=== PATIENT | male | born 1955 | race Caucasian/White ===

== ENCOUNTER 2017-05-08 03:33 | Inpatient (IN) ==
[2017-05-08] MEDS ORDERED: ORPHENADRINE 60 MG/2 ML INJECTION IM ONE (03:41)
[2017-05-08] MEDS ORDERED: HYDROMORPHONE 2 MG/ML INJECTION IM ONE (03:41)
[2017-05-08] MEDS ORDERED: KETOROLAC 60 MG/2 ML INJECTION IM ONE (03:41)
--- NOTE | 2017-05-08 03:43 | Emergency Department Report ---
Back Pain HPI - General Stated Complaint: FALL/BACK PAIN Time Seen by Provider: 05/08/17 03:39 Source: patient, EMS Mode of arrival: EMS Limitations: no limitations - History of Present Illness HPI Narrative: Patient has had 2 falls in the last 2 days, the first was on the May , where the patient tripped/stumbling and falling backwards and struck the lumbar region of his back against a cabinet handle in his kitchen. Patient had immediate pain, but was able to get up without difficulty, and although he was having pain continued his normal activities. Yesterday the patient had another fall where he slid down stairs, partially on his back and partially on his stomach, and in an effort to try to stop himself patient gripped and grappled with the stairs going down several stairs. No the patient awoke this morning with significant pain in the muscular region of his deltoid and left trapezius, as well as significant lumbar back pain. Patient has tried 3 Tylenol tablets at home without relief. - Related Data Home Medications Medication Instructions Recorded Confirmed Aspirin [[place] Aspirin] 81 mg PO DAILY 05/08/17 05/08/17 Losartan [Cozaar] 50 mg PO DAILY 05/08/17 05/08/17 Multi-Vitamin Plain [Theragran] 1 tab PO DAILY 05/08/17 05/08/17 Allergies Allergy/AdvReac Type Severity Reaction Status Date / Time Sulfa (Sulfonamide Allergy Verified 05/08/17 03:53 Antibiotics) Review of Systems All systems: reviewed and negative except as stated PFSH Patient Stated Medical History Cataracts Yes Hypertension Yes Asthma Yes Sleep Apnea Yes Gastroesophageal Reflux Yes Disease Other Musculoskeletal Yes: NECK FRACTURE, TORN MENISCUS Blood Transfusions Yes: POSSIBLE WITH NECK SURGERY Hypertension High cholesterol Prediabetes GERD Obesity History of C4-5 fractures with fusion, patient has chronic lower extremity weakness that he has had since that injury 40 years ago. Surgical History: Portable left meniscus. C4/5 fracture with fusion. 2 hernia repairs as a child. Tonsillectomy - Social History Smoking status: Never smoker Substance use type: does not use Alcohol intake frequency: a few times a month Physical Exam - Limitations Limitations: no limitations - General General appearance: alert - Normal Exams: Head:: Normocephalic without trauma Eyes:: Pupils are PERRLA w/ EOMI, No scleral icterus, irritation, or foreign bodies noted ENMT:: No facial trauma, nasal exudates, pharyngeal erythema, or exudates are noted Neck:: Full range of motion, without adenopathy, JVD, bruits or thyromegaly Chest/Respirations:: Clear all coronado, with good airflow, and symmetry bilaterally Cardiovascular:: Regular rate and rhythm, without murmur or gallop, Pulses 2+ all extremities, capillary refill, <2 seconds all extremities Abdomen:: Bowel sounds positive, soft, non-tender, non-distended, no hepatosplenomegaly, masses or bruits noted Lymphatic:: No lymphadenopathy, or lymphedema noted Integumentary:: No rashes, hives, or bruising noted, hair and nails, without abnormality Neurological:: Patient is alert, and oriented, cranial nerves, motor/sensory/ cerebellar, exams w/o gross deficits, to observation Psychiatric:: Patient exhibits, appropriate attention, emotion and affect - Extremities Exam Extremities exam: Present: normal inspection, full ROM, tenderness (mild to moderate left upper trapezius and posterior lateral deltoid tenderness, no bony tenderness, full range of motion and strength,) - Back Exam Back exam: Present: normal inspection, tenderness (moderate diffuse bilateral lumbar paraspinal tenderness, with moderate spasm to palpation), muscle spasm, paraspinal tenderness. 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 After medications and rest, patient was improving, however patient continues to have significant him's and tenderness in the scapular muscles, bilateral trapezius muscles, and bilateral deltoids. In assessing the patient for his needs to return home, it became apparent that the patient feels very unsafe at home, does not feel as though his is strong enough to help him get around the house, and the patient does have persistent generalized lower Brian[place] weakness which is chronic. Case is discussed with Dr. Zarate - we'll admit the patient for upper shoulder weakness and pain after a fall, pain control, and MRI later today Disposition Clinical Impression: Upper extremity weakness, Muscle spasm of right shoulder, Muscle spasm of left shoulder, Lumbar paraspinal muscle spasm Disposition: 02 To OBS [facility] Condition: Improved Prescriptions: No Action Losartan [Cozaar] 50 mg PO DAILY Aspirin [[place] Aspirin] 81 mg PO DAILY Multi-Vitamin Plain [Theragran] 1 tab PO DAILY - Seen By: physician
[2017-05-08] MEDS ORDERED: SALINE FLUSH 10ml SYRINGE IVF PRN (05:31)
[2017-05-08] MEDS ORDERED: NS 1,000 ML IV ONE (05:32)
[2017-05-08] MEDS ORDERED: HYDROMORPHONE 2 MG/ML INJECTION IVP ONE (05:32)
--- NOTE | 2017-05-08 06:00 | History & Physical Report ---
<Joey Zarate Angel - Last Filed: 05/08/17 06:33> History of Present Illness Date: 05/08/17 Chief complaint: Back and shoulder pain HPI: 61 year old morbidly obese male presents to the ER with complaints of pain. He states he had 2 falls in the last 2 days, the first was on the May, where the patient tripped/stumbling and falling backwards and struck the lumbar region of his back against a cabinet handle in his kitchen. Patient had immediate pain, but was able to get up without difficulty, and although he was having pain continued his normal activities. Yesterday the patient had another fall where he slid down stairs, partially on his back and partially on his stomach. He then awoke this morning with significant pain in the muscular region of his deltoid and left trapezius, as well as significant lumbar back pain. Patient has tried 3 Tylenol tablets at home without relief. In the ED, CT imaging per report reveals no acute bony abnormality. However, he has significant muscle spasming and pain. He was given toradol, norflex, and dilaudid with some improvement. However, he is apprehensive of returning home and does not think he can take care of himself. He had a C4/5 fracture 40 years ago, and has been able to function well at home up until this point he states. Thus, he is being placed under observation status for further pain control. Please note this patient encounter was performed via the use of telemedicine technology Review of Systems All systems: reviewed and no additional remarkable complaints except as stated PFSH Patient Stated Medical History Cataracts Yes Hypertension Yes Asthma Yes Sleep Apnea Yes Gastroesophageal Reflux Yes Disease Other Musculoskeletal Yes: NECK FRACTURE, TORN MENISCUS Blood Transfusions Yes: POSSIBLE WITH NECK SURGERY Surgical History: Portable left meniscus. C4/5 fracture with fusion. 2 hernia repairs as a child. Tonsillectomy - Social History Smoking status: Never smoker Medications Home Medications Medication Instructions Recorded Confirmed Type Aspirin [[place] Aspirin] 81 mg PO DAILY 05/08/17 05/08/17 History Losartan [Cozaar] 50 mg PO DAILY 05/08/17 05/08/17 History Multi-Vitamin Plain [Theragran] 1 tab PO DAILY 05/08/17 05/08/17 History Allergies Allergy/AdvReac Type Severity Reaction Status Date / Time Sulfa (Sulfonamide Allergy Verified 05/08/17 07:10 Antibiotics) Exam Vital Signs: Temperature 99.0 F 05/08/17 03:33 Pulse Rate 83 05/08/17 05:25 Respiratory Rate 18 05/08/17 05:25 Blood Pressure 149/70 H 05/08/17 05:25 Pulse Oximetry 95 05/08/17 05:25 Oxygen Delivery Method Room Air Height: 1.78 m Weight: 129.3 kg - Constitutional Present: no acute distress, morbidly obese - Routine HEENT Exam Head: Present: normocephalic, atraumatic ENT: Present: mucous membranes moist - Routine Respiratory Exam Present: CTA bilaterally. Absent: accessory muscle use, dyspnea, rhonchi - Routine Cardiovascular Exam Present: RRR, S1, S2, no murmur - Routine Abdominal Exam Present: soft, normoactive bowel sounds, non tender - Routine Back/Spine/Pelvis Exam Back/Spine: Present: paraspinal tenderness, muscle spasm - Routine Skin Exam Present: intact. Absent: rash - Routine Neurological Exam Present: alert, oriented X3 Results - Labs CBC & Chem 7: 05/08/17 05:56 05/08/17 05:56 Assessment and Plan (1) Muscle spasm of left shoulder Current visit: Yes Status: Acute (2) Muscle spasm of right shoulder Current visit: Yes Status: Acute (3) Upper extremity weakness Current visit: Yes Status: Acute (4) Lumbar paraspinal muscle spasm Current visit: Yes Status: Acute Assessment and Plan: Assessment 1. Intractable pain of the shoulder and lumbar paraspinal musculature after fall 2. Morbid obesity 3. HTN 4. SUSAN 5. Remote history of C4/5 spinal injury Plan Patient will be placed under observational status for pain control purposes. Further imaging (ie MRI of the spine) to be deferred to daytime rounding MD. Will continue home meds. Place PT/OT consult. Lab work ordered by ED physician is still pending. Will add CPK on to labs. DVT ppx: SCDs Hospital Course Summary Disclaimer: The visit summary below is not to be considered part of the above Progress Note. <Marisela Ellis - Last Filed: 05/08/17 15:06> History of Present Illness Date: 05/08/17 [facility] Patient Stated Medical History Paralysis Yes: when neck fracture Cataracts Yes Hypertension Yes Asthma Yes Sleep Apnea Yes Gastroesophageal Reflux Yes Disease Other Musculoskeletal Yes: NECK FRACTURE, TORN MENISCUS Blood Transfusions Yes: POSSIBLE WITH NECK SURGERY Exam Vital Signs: Temperature 97.7 F 05/08/17 07:53 Pulse Rate 80 05/08/17 07:53 Respiratory Rate 18 05/08/17 07:53 Blood Pressure 153/78 H 05/08/17 07:53 Pulse Oximetry 95 05/08/17 06:53 Oxygen Delivery Method Room Air Height: 1.78 m Weight: 129.3 kg Results - Labs CBC & Chem 7: 05/08/17 05:56 05/08/17 05:56 Microbiology Results: Microbiology 05/08/17 11:44 Urine, Voided (Cc/notcc) Urine Culture - Preliminary Culture Initiated - Results Pending 05/08/17 10:14 Peripheral/Iv Start Blood Culture - Preliminary Culture Initiated - Results Pending 05/08/17 10:17 Peripheral/Iv Start Blood Culture - Preliminary Culture Initiated - Results Pending Assessment and Plan (1) Rhabdomyolysis Current visit: Yes Status: Acute (2) Upper extremity weakness Current visit: Yes Status: Acute (3) Muscle spasm of right shoulder Current visit: Yes Status: Acute (4) Muscle spasm of left shoulder Current visit: Yes Status: Acute (5) Lumbar paraspinal muscle spasm Current visit: Yes Status: Acute Assessment and Plan: Dr. Zarate's note reviewed. Mr. Amato interviewed and examined. CC: Back pain and falls HPI: Mr. Amato is a 61-year-old male with history of the C4-5 fracture 40 years ago requiring C3-6 fusion. As a result he has chronic weakness in his legs and altered sensation in his left foot. He falls intermittently and reports that he is more prone to fall when he is fatigued and the leg weakness seems to worsen. On 05/06 the patient stumbled and tripped falling backward at which time he fell backward and struck the lumbar region of his back against a kitchen cabinet. There was immediate pain but he was able to get up. He continued to have pain with usual activities later in the day and yesterday morning. On 05/07 patient had a second fall and slid down this stairs partially on his back and partially on his stomach. He was unable to get up by himself and EMS had to assist to get him off the floor. He awoke at approximately 1:30 this morning and was unable to get out of bed to get to the bathroom. Through the day yesterday had increasing pain in the upper back with increasing weakness in the upper extremities and aggravation of pain with any attempt to use his arms. His left arm seems weaker than usual (left arm is generally weaker than the right but current weakness exceeds baseline) he continues to have lumbar back pain. He describes significant back spasm. Tylenol has been used in high doses at home without any relief. EMS again reported to the patient 's home to help get him out of bed and subsequently transport to the emergency room. Lumbar spine CT demonstrated no acute bony pathology and the patient was hospitalized for pain management with multiple abnormal labs subsequently identified including a CPK of 41,512. Patient is admitted now for management of rhabdomyolysis, multiple falls, and acute on chronic back pain/muscle weakness. PH/SH/FH: agree with that recorded above with notation the patient uses CPAP at night and had bilateral cataract extractions 2 years ago. He additionally has had a deviated septum repair at age 17. The patient has no history of tobacco or illicit drug use and has occasional alcohol consumption. 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 Family history is positive for mother dying of CLL/colon cancer; father is 90 and has coronary artery disease and prior aortic valve replacement ROS: 10 point review as described previously with additions of chronic weakness of his legs, intermittent falls, chronic numbness in the left foot. Has chronic back pain and intermittent constipation. Remainder of review of systems is negative or as per history of present illness. EXAM: General-morbidly obese male, mildly uncomfortable when seen but alert and cooperative, fluent speech HEENT-PERRL, EOMI without nystagmus, conjunctiva clear, sclera anicteric, conjugate gaze, facial structures symmetric, oropharynx clear, neck supple and without adenopathy Lungs-respirations nonlabored, decreased breath sounds throughout, good inspiratory effort Cardiac-regular rhythm, S1-S2 Abd-soft, nontender, without palpable mass or organomegaly, bowel sounds present Ext-without edema Skin-no obvious wounds or bruising, back not directly visualized Neuro-cranial nerves 3-12 intact, sensation grossly intact to light touch upper and lower extremities, left pruner slightly weaker than the right, left deltoid graded 3/5, right 4+/5, bilateral biceps 4+/5, iliopsoas 4+/5 bilaterally, bilateral plantarflexion 4+/5, right dorsiflexion 4+/5, left dorsiflexion 3/5. Biceps jerks present 1/ Psych-calm, cooperative DATA: CPK 41,512, AST 695, ALT 124, bilirubin 1.8. Elective lites unremarkable , creatinine 1.0, BUN 23. White count 15.3 with 67% neutrophils, 27% bands, procalcitonin 4.55 UA with increased specific gravity, +3 occult blood, 5-10 RBCs, positive nitrate Lumbar spine CT reviewed by myself demonstrating no evidence for acute injury to the lumbar spine although mild neural foraminal narrowing is present. A/P: Rhabdomyolysis Falls Back injury with muscle spasm/pain Leukocytosis History C4-5 fracture, C3-6 fusion Chronic lower extremity weakness Hypertension Obstructive sleep apnea Morbid obesity, BMI 40.9 Patient is converted to inpatient status due to severity of muscle injury with resultant rhabdomyolysis and risk of kidney injury. High-volume fluids have been initiated. PICC line is being placed due to difficulty obtaining blood work and placing line earlier today. Anticipate that fluids will be needed for several days before CPK drops sufficiently that kidneys are no longer risk. CPK will be followed serially and renal function monitored. Transaminases are elevated on admission consistent with rhabdo. Exam reveals both left upper extremity weakness which patient describes as chronic although worsened with increased spasm in the upper back and bilateral lower extremity weakness suggestive of foot drop which likely predisposes to falls. Patient will be evaluated for IRU when medically stable for discharge. Pain control will be augmented with scheduled [place] and Flexeril with continuation of IV Dilaudid. CT of the lumbar spine did not reveal acute pathology but further imaging of the upper back may be needed as majority of the pain is in the thoracic distribution. Clinically this seems to be muscular and symptoms will be reassessed tomorrow. There is no radicular pain and no sensory loss to raise red flags at this time and weakness is consistent with muscle spasm and pain. Leukocytosis is present without clinical evidence of infectious source; urinalysis is not highly suspicious. Blood cultures were obtained and chest x- ray is being obtained. Continue home CPAP and home medications for hypertension. Discussed with case management, nursing, and IRU staff. Hospital Course Summary Disclaimer: The visit summary below is not to be considered part of the above Progress Note.
[2017-05-08] MEDS ORDERED: ACETAMINOPHEN 650 MG SUPPOSITORY PR PRN (07:07)
[2017-05-08] MEDS ORDERED: ONDANSETRON 4 MG/2 ML INJECTION IVP PRN (07:07)
--- NOTE | 2017-05-08 07:56 | CT Scan Report ---
Indication: fall, lumbar spinal pain PROCEDURE: CT lumbar spine wo con: Encounter: Initial Comparison: None Technique: Axial noncontrast CT imaging of the lumbar spine was performed with coronal and sagittal two-dimensional reformats. Automated Exposure Control and Iterative Reconstruction dose reducing techniques were utilized. FINDINGS: The alignment of the lumbar spine is normal for the patient's age. No fractures or traumatic subluxation of the lumbar spine is evident. There are age appropriate degenerative changes within the intervertebral disks and facet joints in the lower lumbar region. A few areas of mild neural foraminal narrowing. The paraspinal soft tissues and spinal canal are otherwise unremarkable in appearance. IMPRESSION: No evidence for acute traumatic injury of the lumbar spine. There is a preliminary report by [employer] [facility]. .
[2017-05-08] MEDS: HYDROCODONE/APAP 7.5 MG/325 MG TABLET PO PRN ×2 (08:07→14:26)
[2017-05-08] MEDS: HYDROMORPHONE 2 MG/ML INJECTION IVP PRN ×7 (08:07→23:09)
[2017-05-08] MEDS: LOSARTAN 50 MG TABLET PO SCH (09:14)
[2017-05-08] MEDS: MULTI-VITAMIN PLAIN TABLET PO SCH (09:14)
[2017-05-08] MEDS: ASPIRIN *EC* 81 MG TABLET PO SCH (09:14)
[2017-05-08] MEDS: NS 1,000 ML IV SCH ×3 (11:25→20:52)
[2017-05-08] MEDS: HYDROCODONE/APAP 7.5 MG/325 MG TABLET PO SCH ×2 (14:57→20:19)
[2017-05-08] MEDS: CYCLOBENZAPRINE 10 MG TABLET PO SCH ×2 (15:01→20:20)
--- NOTE | 2017-05-08 17:05 | XRay Report ---
Indication: obstructive sleep apnea, leukocytosis PROCEDURE: XR chest 1V: Encounter: Initial Comparison: None Findings: The second image demonstrates a right PICC line in place with the tip projecting over the lower SVC. Linear probable atelectasis in the left lower lobe. Obscuration of the left hemidiaphragm could be due to overlapping soft tissues and an enlarged cardiac silhouette. Right lung appears clear. No pneumothorax. Mediastinal contours and pulmonary vascularity appear normal. Chronic appearing right seventh posterior rib deformity. Impression: 1. Obscured left lung base. Infiltrate cannot be entirely excluded in this location. PA and lateral views may be helpful for further evaluation. 2. Right PICC line appears appropriately positioned. .
[2017-05-08] MEDS ORDERED: ACETAMINOPHEN 325 MG TABLET PO PRN (19:58)
[2017-05-08] MEDS ORDERED: BISACODYL 10 MG SUPPOSITORY RECTALLY PRN (23:42)
[2017-05-09] MEDS: NS 1,000 ML IV SCH ×5 (01:14→14:04)
[2017-05-09] MEDS: HYDROCODONE/APAP 7.5 MG/325 MG TABLET PO SCH ×4 (02:41→21:10)
[2017-05-09] MEDS: HYDROMORPHONE 2 MG/ML INJECTION IVP PRN ×3 (02:59→22:54)
[2017-05-09] MEDS ORDERED: SENNA + DOCUSATE TABLET PO SCH (09:00)
[2017-05-09] MEDS: POLYETHYL GLYCOL 3350 17gm PACKET PO SCH ×2 (09:11→21:13)
[2017-05-09] MEDS: LOSARTAN 50 MG TABLET PO SCH (09:11)
[2017-05-09] MEDS: ASPIRIN *EC* 81 MG TABLET PO SCH (09:12)
[2017-05-09] MEDS: CYCLOBENZAPRINE 10 MG TABLET PO SCH ×3 (09:12→21:13)
[2017-05-09] MEDS: MULTI-VITAMIN PLAIN TABLET PO SCH (09:12)
--- NOTE | 2017-05-09 16:21 | Progress Note ---
<NikaNina D - Last Filed: 05/09/17 16:17> Subjective: Don is still very sore. He understands the labs we're monitoring and asked appropriate questions. He denies difficulty breathing. We discussed labs suggestive of infection - he states he had a "cold" 1 month ago, but no respiratory sx, urinary issues, or wounds/rashes since then. He feels a little bloated and is constipated but has been eating well. He's looking forward to go to IRU when he's medically ready. We also discussed the low chance of renal failure progression, and he would want to go forward with dialysis if necessary. Objective Vital signs: Temperature 98.5 F 05/09/17 15:00 Pulse Rate 81 05/09/17 15:00 Respiratory Rate 18 05/09/17 15:00 Blood Pressure 157/74 H 05/09/17 15:00 Pulse Oximetry 96 05/09/17 15:00 Oxygen Delivery Method Room Air Weight: 137.5 kg - Constitutional Present: no acute distress, well nourished, well developed, obese - Routine HEENT Exam ENT: Present: mucous membranes moist - Routine Respiratory Exam Present: CTA bilaterally - Routine Cardiovascular Exam Present: S1, S2 - Routine Abdominal Exam Present: normoactive bowel sounds, distended - Routine Extremities Exam Present: edema (trace b/l lower ext.) - Routine Skin Exam Present: intact, dry, warm, rash (back - papular) - Routine Neurological Exam Present: alert, oriented X3 - Routine Psychiatric Exam Present: normal affect, normal thought process Results - Labs CBC & Chem 7: 05/09/17 04:41 05/09/17 13:59 Assessment and Plan (1) Rhabdomyolysis Current visit: Yes Status: Acute (2) Upper extremity weakness Current visit: Yes Status: Acute (3) Muscle spasm of right shoulder Current visit: Yes Status: Acute (4) Muscle spasm of left shoulder Current visit: Yes Status: Acute (5) Lumbar paraspinal muscle spasm Current visit: Yes Status: Acute (6) Acute kidney injury Current visit: Yes Status: Acute Assessment and Plan: Rhabdomyolysis - CK starting to trend down (peaked at 79,644, now at 61,563) - continue IVF & monitor for overload DEONDRE -Cr increased to 2.3 -repeat BMP in am -continue Walsh and I&Os Hyponatremia -mild, 133 -continue IVF SIRS -leukocytosis with left shift, fever, elevated procalcitonin -no evidence of infection; BC neg at 1 day -urine cx shows prelim. growth but UA is not indicative of UTI -? trauma effects Falls -fairly chronic -chronic lower ext weakness, hx C4-C5 fx -IRU once medically stable Sepsis Assessment - Evaluation Sepsis screening result: No Definite Risk Hospital Course Summary Disclaimer: The visit summary below is not to be considered part of the above Progress Note. Hospital Course: 05/09/17 16:26 Rhabdomyolysis - CK starting to trend down (peaked at 79,644, now at 61,563) - continue IVF & monitor for overload DEONDRE -Cr increased to 2.3 -repeat BMP in am -continue Walsh and I&Os Hyponatremia -mild, 133 -continue IVF SIRS -leukocytosis with left shift, fever, elevated procalcitonin -no evidence of infection; BC neg at 1 day -urine cx shows prelim. growth but UA is not indicative of UTI -? trauma effects Falls -fairly chronic -chronic lower ext weakness, hx C4-C5 fx -IRU once medically stable <Marisela Ellis - Last Filed: 05/09/17 18:00> Objective Vital signs: Temperature 98.5 F 05/09/17 15:00 Pulse Rate 81 05/09/17 15:00 Respiratory Rate 18 05/09/17 15:00 Blood Pressure 157/74 H 05/09/17 15:00 Pulse Oximetry 96 05/09/17 15:00 Oxygen Delivery Method Room Air Results - Labs CBC & Chem 7: 05/09/17 04:41 05/09/17 13:59 Assessment and Plan (1) Rhabdomyolysis Current visit: Yes Status: Acute (2) Acute kidney injury Current visit: Yes Status: Acute (3) Upper extremity weakness Problem details: L>R Current visit: Yes Status: Acute (4) Muscle spasm of left shoulder Current visit: Yes Status: Acute (5) Lumbar paraspinal muscle spasm Current visit: Yes Status: Acute (6) Cervical myelopathy Problem details: C4-5 fracture; C3-6 fusion 40 years ago Current visit: Yes Status: Chronic Assessment and Plan: I have independently evaluated and examined this patient. I reviewed the chart, the patient's history, and the JOB ANALYST's documented findings as above. We discussed and formulated the assessment and plan as above with additions as below: Don reports significant fatigue but otherwise reports pain control is improved. Continues to have difficulty moving his left shoulder with decreased range of motion. Urine output is improved. Primary complaint is constipation at this time. Fever was present yesterday afternoon and early evening but has subsided and there's been no recurrence. NAD, alert, fluent speech Minimal active abduction at the left shoulder but passively I can abduct the left to approximately 60 and flex anteriorly a little over 100. Range of motion is impaired on the left relative to the right but patient indicates that this is chronically true. Sensation remains intact to touch bilaterally in the upper extremities and distal lower extremities. Respirations nonlabored, breath sounds clear bilaterally. Trace bilateral lower extremity edema. Creatinine has climbed progressively from 1.0 on admission to 2.3; urine has faint pink tint with 3+ occult blood on urine dipstick-micral was not done on today's UA-Will recheck tomorrow with micro. Urine output improving- approximately 1 L urine output thus far today. CPK slightly improved this afternoon. Continue high-volume fluids, urine to be alkalinized with sodium acetate containing fluids. Patient has been tentatively accepted for rehabilitation but I don't believe he is medically stable to transfer until we have clear improvement in renal function and CPK drops below about 20,000. IV fluids will need to continue until CPK as below 5000 and preferably lower. Bowel regimen initiated for constipation. Chest x-ray obtained late yesterday reviewed by myself demonstrating no acute cardiopulmonary disease. Patient remains at high risk for renal compromise. Discussed with nursing and Pharm.D. Hospital Course Summary Disclaimer: T
[2017-05-09] MEDS: D5 IV SCH ×2 (18:21→22:57)
[2017-05-09] MEDS: [UNRECOGNIZED DRUG - OTHER] IV SCH ×2 (18:21→22:57)
[2017-05-09] MEDS: SODIUM ACETATE IV SCH ×2 (18:21→22:57)
[2017-05-09] MEDS: SENNA + DOCUSATE TABLET PO SCH (21:12)
[2017-05-10] MEDS: HYDROCODONE/APAP 7.5 MG/325 MG TABLET PO PRN ×2 (00:12→23:55)
[2017-05-10] MEDS: HYDROCODONE/APAP 7.5 MG/325 MG TABLET PO SCH ×4 (02:20→20:37)
[2017-05-10] MEDS: [UNRECOGNIZED DRUG - OTHER] IV SCH ×3 (03:12→12:46)
[2017-05-10] MEDS: D5 IV SCH ×3 (03:12→12:46)
[2017-05-10] MEDS: SODIUM ACETATE IV SCH ×3 (03:12→12:46)
[2017-05-10] MEDS: HYDROMORPHONE 2 MG/ML INJECTION IVP PRN ×2 (05:35→18:14)
[2017-05-10] MEDS: POLYETHYL GLYCOL 3350 17gm PACKET PO SCH (08:09)
[2017-05-10] MEDS: SENNA + DOCUSATE TABLET PO SCH ×2 (08:10→20:37)
[2017-05-10] MEDS: CYCLOBENZAPRINE 10 MG TABLET PO SCH ×3 (08:10→20:37)
[2017-05-10] MEDS: MULTI-VITAMIN PLAIN TABLET PO SCH (08:10)
[2017-05-10] MEDS: ASPIRIN *EC* 81 MG TABLET PO SCH (08:11)
[2017-05-10] MEDS: NS 1,000 ML IV SCH ×4 (12:54→19:54)
[2017-05-10] MEDS ORDERED: FUROSEMIDE 20 MG/2 ML INJECTION IVP ONE (15:42)
--- NOTE | 2017-05-10 17:37 | Progress Note ---
Subjective: Shane reports continued pain primarily in his shoulders and some pain in his back although that is less problematic than earlier days. He feels weak but his feet don't feel quite as closely as stated on admission. He had a bowel movement and is no longer experiencing any nausea. He denied dyspnea, chest pain, palpitations. Urine output is good and urine is no longer blood-tinged. Objective Vital signs: Temperature 97.4 F 05/10/17 15:03 Pulse Rate 81 05/10/17 15:03 Respiratory Rate 18 05/10/17 15:03 Blood Pressure 168/86 H 05/10/17 15:03 Pulse Oximetry 93 05/10/17 15:03 Oxygen Delivery Method Room Air EXAM General-NAD, alert, fluent speech HEENT-pupils equal/round, conjunctiva clear, sclera anicteric, oropharynx clear Lungs-respirations nonlabored, good airflow, breath sounds clear Cardiac-regular rhythm, S1-S2 Abd-soft, obese, nontender, bowel sounds present Ext-trace edema bilateral lower extremities Neuro-sensation intact bilateral upper/lower extremities but today patient notes a small area of tingling without loss of sensation along the medial left ankle extending onto the anterior medial left proximal/mid foot but not involving the toes or the Achilles tendon. Psych-calm, cooperative, pleasant - Weight: 141.521 kg Results - Labs CBC & Chem 7: 05/10/17 04:03 05/10/17 16:03 Labs: Creatinine this morning 2.8 with BUN 43, CPK this morning 44,041-this afternoon 38,011 AST 507, ALT 154, bili/alkaline phosphatase normal Assessment and Plan (1) Rhabdomyolysis Current visit: Yes Status: Acute (2) Acute kidney injury Current visit: Yes Status: Acute (3) Upper extremity weakness Problem details: L>R Current visit: Yes Status: Acute (4) Muscle spasm of left shoulder Current visit: Yes Status: Acute (5) Lumbar paraspinal muscle spasm Current visit: Yes Status: Acute (6) Cervical myelopathy Problem details: C4-5 fracture; C3-6 fusion 40 years ago Current visit: Yes Status: Chronic DVT Prophylaxis: SCD's Resuscitation Status: Full Code Assessment and Plan: Rhabdomyolysis Acute kidney injury, consistent with pigment nephropathy. Hyponatremia, resolved SIRS Ambulatory dysfunction Cervical myelopathy-old Muscle spasm/injury secondary to falls History C4-C5 fracture, remote Constipation Creatinine continues to climb although urine output is good and weight of climb is slowing. CPK slowly dropping-continue high-volume fluids although rate decreased to 125/ hr; acetate discontinued as an alkalinizing agent due to shortage. Low-volume Lasix added as patient is up about 12 kg from admission and fluid volume is significantly positive. May require Bumex to promote diuresis due to renal insufficiency. Repeat UA with micro. No further fever of significance (100.3 overnight), white count normal; and hyponatremia has corrected. Patient has been tentatively accepted for rehabilitation but I don't believe he is medically stable to transfer until we have clear improvement in renal function and CPK drops below about 20,000. IV fluids will need to continue until CPK as below 5000 and preferably lower. Continue bowel regimen for constipation. Patient remains at high risk for renal compromise. Discussed with nursing and Pharm.D. Sepsis Assessment - Evaluation Sepsis screening result: No Definite Risk Hospital Course Summary Disclaimer: The visit summary below is not to be considered part of the above Progress Note. Hospital Course: 05/08/17 Patient admitted after several falls and rhabdomyolysis with CPK of 41,512. High -volume fluids initiated. PICC line placed due to difficulty with phlebotomy and IV access. Transaminases elevated consistent with rhabdo. Significant weakness bilateral upper and lower extremities-remote cervical fracture, probable myelopathy. Continue home medications for hypertension, and home CPAP for SUSAN. 05/09/17 16:26 Rhabdomyolysis - CK starting to trend down (peaked at 79,644, now at 61,563) - continue IVF & monitor for overload DEONDRE -Cr increased to 2.3 -repeat BMP in am -continue Walsh and I&Os Hyponatremia -mild, 133 -continue IVF SIRS -leukocytosis with left shift, fever, elevated procalcitonin -no evidence of infection; BC neg at 1 day -urine cx shows prelim. growth but UA is not indicative of UTI -? trauma effects Falls -fairly chronic -chronic lower ext weakness, hx C4-C5 fx -IRU once medically stable 05/10/17 17:47 Creatinine continues to climb although urine output is good and weight of climb is slowing. CPK slowly dropping-continue high-volume fluids although rate decreased to 125/ hr; acetate discontinued as an alkalinizing agent due to shortage. Low-volume Lasix added as patient is up about 12 kg from admission and fluid volume is significantly positive. May require Bumex to promote diuresis due to renal insufficiency. No further fever of significance (100.3 overnight), white count normal; and hyponatremia has corrected. 05/10/17 17:52
[2017-05-10] MEDS ORDERED: POLYETHYL GLYCOL 3350 17gm PACKET PO PRN (17:44)
[2017-05-11] MEDS: HYDROCODONE/APAP 7.5 MG/325 MG TABLET PO SCH ×2 (03:01→09:09)
[2017-05-11] MEDS: NS 1,000 ML IV SCH ×5 (03:01→20:55)
--- NOTE | 2017-05-11 08:16 | Pharmacy Consult-Antibiotics ---
Pharmacy Consult-Vancomycin - Laboratory Information WBC 8.4 T/MM3 (4.5-11.0) 05/10/17 04:03 BUN 43.0 MG/DL (9-20) H 05/11/17 04:22 Creatinine 3.1 MG/DL (0.8-1.5) H 05/11/17 04:22 Procalcitonin 3.86 NG/ML H* 05/10/17 04:03 61yo M admitted with Rhabdomyolysis, Acute Kidney Injury. Also has GM + UTI. Sensitivities not yet available. Received Vancomycin 1500mg last night (05/10 @ 1930) Calculated CrCl = 31 ml/min Will continue to watch kidney fx closely. Will continue VANCOMYCIN @ 1250mg IV once daily. This gives calculated Peak/ trough of 36/15 mcg/ml respectively. Trough ordered for tomorrow am (05/12) prior to dose. Thank you
[2017-05-11] MEDS: POLYETHYL GLYCOL 3350 17gm PACKET PO SCH (09:11)
[2017-05-11] MEDS: ASPIRIN *EC* 81 MG TABLET PO SCH (09:11)
[2017-05-11] MEDS: CYCLOBENZAPRINE 10 MG TABLET PO SCH ×3 (09:11→21:53)
[2017-05-11] MEDS: MULTI-VITAMIN PLAIN TABLET PO SCH (09:12)
[2017-05-11] MEDS: SENNA + DOCUSATE TABLET PO SCH ×2 (09:12→21:53)
--- NOTE | 2017-05-11 13:39 | Progress Note ---
<Vijaya Garcia - Last Filed: 05/11/17 13:36> Subjective: Shane is seen today in follow up. He is feeling a little better. Still sore, LBP. Reports that he continues to have fairly significant arm weakness, reports difficulty lifting his arms. Chart is reviewed at length; Pt. did reports frequent falls a few days prior to admission for difficulty standing. Prior hx of cervical spine stenosis with surgery. Objective Vital signs: Temperature 98.7 F 05/11/17 08:00 Pulse Rate 79 05/11/17 08:00 Respiratory Rate 18 05/11/17 08:00 Blood Pressure 160/86 H 05/11/17 08:00 Pulse Oximetry 94 05/11/17 08:00 Oxygen Delivery Method Room Air Weight: 141.521 kg - Constitutional Present: no acute distress, well nourished, well developed, obese, cooperative - Routine HEENT Exam Eye: Present: EOMI, PERRL ENT: Present: mucous membranes moist - Routine Respiratory Exam Present: decreased breath sounds. Absent: dyspnea, rales, respiratory distress , rhonchi, wheezes - Routine Cardiovascular Exam Present: RRR, S1, S2 - Routine Abdominal Exam Present: soft, normoactive bowel sounds, non distended, non tender - Routine Extremities Exam Present: edema, tenderness - Routine Back/Spine/Pelvis Exam Back/Spine: Present: muscle spasm Pelvis: Present: buttock tenderness - Routine Musculoskeletal Exam Musculoskeletal: Present: no clubbing or cyanosis. Absent: normal strength, no tenderness - Routine Skin Exam Present: intact, dry, warm, normal turgor, rash (Back, chronic per pt. ) - Routine Neurological Exam Present: alert, oriented X3, motor deficit, moving all extremities - Routine Psychiatric Exam Present: normal affect, normal thought process, good insight, good judgment Results - Labs CBC & Chem 7: 05/10/17 04:03 05/11/17 04:22 Assessment and Plan (1) Upper extremity weakness Problem details: L>R Current visit: Yes Status: Acute (2) Muscle spasm of left shoulder Current visit: Yes Status: Acute (3) Lumbar paraspinal muscle spasm Current visit: Yes Status: Acute (4) Rhabdomyolysis Current visit: Yes Status: Acute (5) Acute kidney injury Current visit: Yes Status: Acute (6) Cervical myelopathy Problem details: C4-5 fracture; C3-6 fusion 40 years ago Current visit: Yes Status: Chronic DVT Prophylaxis: SCD's Resuscitation Status: Full Code Assessment and Plan: 05/11/17- *Recurrent falls due to gait instability; Generalized muscle pain and weakness. Known remote hx of C-Spine stenosis s/p surgery. Will order CT of C-spine in am due to weakness and falls onset prior to rhabdo. *Rhabdo with Acute Renal Failure-He is slowly improving. SCr continues to climb, but the rate of climb is slowing. CPK is trending down. Will hold off on transfer to rehab until CPK is less than 20k. Continue IVF, Bumex to flush system. *Generalized weakness, muscle pain- Transfer to rehab when medically stable. CT c-spine in am given c/o upper arm weakness and pain. This may be due to rhabdo, but would like to exclude hardware failure *Leukocytosis- UTI, Coag negative staph- Continue Vanco with pharmacy assist with renal dosing. CT C-spine to look at hardware. Some leukocytosis is likely reactive due to acute illness. Follow daily labs. *HTN- BP is trending up. Holding Cozaar due to DEONDRE. Start low dose Norvasc. Avoid excessive lowering so that we don't impede renal perfusion. Fingers are quite swollen. I have encouraged pt to remove jewelry and lock up due to risk of circulatory compromise. D/W POC with Dr. Ellis. - Time spent with patient 25 - 35 minutes Coordination of Care: >50% of visit spent providing counseling/coordination of care Sepsis Assessment - Evaluation Sepsis screening result: No Definite Risk Hospital Course Summary Disclaimer: The visit summary below is not to be considered part of the above Progress Note. Hospital Course: 05/08/17 Patient admitted after several falls and rhabdomyolysis with CPK of 41,512. High -volume fluids initiated. PICC line placed due to difficulty with phlebotomy and IV access. Transaminases elevated consistent with rhabdo. Significant weakness bilateral upper and lower extremities-remote cervical fracture, probable myelopathy. Continue home medications for hypertension, and home CPAP for SUSAN. 05/09/17 16:26 Rhabdomyolysis - CK starting to trend down (peaked at 79,644, now at 61,563) - continue IVF & monitor for overload DEONDRE -Cr increased to 2.3 -repeat BMP in am -continue Walsh and I&Os Hyponatremia -mild, 133 -continue IVF SIRS -leukocytosis with left shift, fever, elevated procalcitonin -no evidence of infection; BC neg at 1 day -urine cx shows prelim. growth but UA is not indicative of UTI -? trauma effects Falls -fairly chronic -chronic lower ext weakness, hx C4-C5 fx -IRU once medically stable 05/10/17 17:47 Creatinine continues to climb although urine output is good and weight of climb is slowing. CPK slowly dropping-continue high-volume fluids although rate decreased to 125/ hr; acetate discontinued as an alkalinizing agent due to shortage. Low-volume Lasix added as patient is up about 12 kg from admission and fluid volume is significantly positive. May require Bumex to promote diuresis due to renal insufficiency. No further fever of significance (100.3 overnight), white count normal; and hyponatremia has corrected. 05/10/17 17:52 05/11/17 13:53 *Recurrent falls due to gait instability; Generalized muscle pain and weakness. Known remote hx of C-Spine stenosis s/p surgery. Will order CT of C-spine in am due to weakness and falls onset prior to rhabdo. *Rhabdo with Acute Renal Failure-He is slowly improving. SCr continues to climb, but the rate of climb is slowing. CPK is trending down. Will hold off on transfer to rehab until CPK is less than 20k. Continue IVF, Bumex to flush system. *Generalized weakness, muscle pain- Transfer to rehab when medically stable. CT c-spine in am given c/o upper arm weakness and pain. This may be due to rhabdo, but would like to exclude hardware failure *Leukocytosis- UTI, Coag negative staph- Continue Vanco with pharmacy assist with renal dosing. CT C-spine to look at hardware. Some leukocytosis is likely reactive due to acute illness. Follow daily labs. *HTN- BP is trending up. Holding Cozaar due to DEONDRE. Start low dose Norvasc. Avoid excessive lowering so that we don't impede renal perfusion. Fingers are quite swollen. I have encouraged pt to remove jewelry and lock up due to risk of circulatory compromise. D/W POC with Dr. Ellis. <Marisela Ellis - Last Filed: 05/11/17 20:03> Objective Vital signs: Temperature 99.0 F 05/11/17 15:26 Pulse Rate 91 05/11/17 19:32 Respiratory Rate 16 05/11/17 19:32 Blood Pressure 171/84 H 05/11/17 19:32 Pulse Oximetry 97 05/11/17 15:26 Oxygen Delivery Method Room Air Results - Labs CBC & Chem 7: 05/10/17 04:03 05/11/17 14:45 Assessment and Plan (1) Rhabdomyolysis Current visit: Yes Status: Acute (2) Acute kidney injury Current visit: Yes Status: Acute (3) Upper extremity weakness Problem details: L>R Current visit: Yes Status: Acute (4) Muscle spasm of left shoulder Current visit: Yes Status: Acute (5) Lumbar paraspinal muscle spasm Current visit: Yes Status: Acute (6) Cervical myelopathy Problem details: C4-5 fracture; C3-6 fusion 40 years ago Current visit: Yes Status: Chronic Assessment and Plan: I have independently evaluated and examined this patient. I reviewed the chart, the patient's history, and the NETWORK SYSTEMS ADMINISTRATOR's documented findings as above. We discussed and formulated the assessment and plan as above with additions as below: Patient reports persistent discomfort in his shoulders and back but the pain is improving progressively. He denied dyspnea and has been ambulating in the room without lightheadedness. He's had no fever. Respirations are nonlabored with diminished breath sounds throughout but lungs are clear. No focal muscle tenderness on palpation of large muscle groups in the legs and across the back and upper arms. CPK continues to decline-down to 19,886 this afternoon; creatinine appears to have peaked at 3.1. Urine output improved with addition of Bumex. Rhabdomyolysis Acute kidney injury, consistent with pigment nephropathy. Hyponatremia, resolved SIRS Hypertension Ambulatory dysfunction Cervical myelopathy-old Muscle spasm/injury secondary to falls History C4-C5 fracture, remote Constipation Pyuria, staph epi Continue diuresis-significant volume overload by exam/weight. IV Bumex every 8 hours, will have to be cautious to avoid overdiuresis. Agree with addition of amlodipine for blood pressure. Will continue to require fluid replacement until CPK less than 5000. Provided creatinine stable or down slightly in the morning patient can transfer to IRU tomorrow. Staph epi in urine-doubt pathogenic. Has received 2 doses of vancomycin, discontinue after third dose tomorrow. Hospital Course Summary Disclaimer: The visit summary below is not to be considered part of the above Progress Note.
[2017-05-11] MEDS: HYDROCODONE/APAP 7.5 MG/325 MG TABLET PO PRN ×2 (14:55→21:57)
[2017-05-11] MEDS: AMLODIPINE 5 MG TABLET PO SCH (14:58)
[2017-05-12] MEDS ORDERED: SALINE FLUSH 10ml SYRINGE IV PRN (01:35)
[2017-05-12] MEDS: NS 1,000 ML IV SCH ×3 (01:48→09:49)
[2017-05-12 08:09] VITALS: BP 162/68; PULSE 93; RESP 19; TEMP 96.9; O2SAT 94
--- NOTE | 2017-05-12 08:11 | CT Scan Report ---
EXAM: CT cervical spine wo con LOCATION OF DICTATION: [facility] HISTORY: Neck pain, falls, arm weakness. COMPARISON: No prior studies available for comparison. Technique: Axial CT images through the cervical spine were performed without contrast. Coronal and sagittal reformatted images were also obtained. Automated Exposure Control and Iterative Reconstruction dose reducing techniques were utilized. FINDINGS: There is bony spinal fusion involving the posterior elements and facets extending from C2 to through the C6 level. Cerclage wires are demonstrated about the bilateral lamina at the C4 and C5 levels. There is reversal of normal cervical lordosis. There is no subluxation. There is no evidence for acute fracture. The prevertebral and paraspinal soft tissues are within normal limits. Moderate spondylosis throughout the cervical and upper thoracic spine with endplate spurring, disc space narrowing, and facet arthropathy. The lung apices are clear. IMPRESSION: 1. No evidence for acute fracture or subluxation. 2. Reversal of normal cervical lordosis with bony fusion and posterior fixation/cerclage wires as described above. 3. Moderate spondylosis throughout the cervical and upper thoracic spine. .
[2017-05-12] MEDS: AMLODIPINE 5 MG TABLET PO SCH (08:52)
[2017-05-12] MEDS: SENNA + DOCUSATE TABLET PO SCH (08:53)
[2017-05-12] MEDS: ASPIRIN *EC* 81 MG TABLET PO SCH (08:53)
[2017-05-12] MEDS: CYCLOBENZAPRINE 10 MG TABLET PO SCH (08:53)
[2017-05-12] MEDS: MULTI-VITAMIN PLAIN TABLET PO SCH (08:53)
[2017-05-12] MEDS: POLYETHYL GLYCOL 3350 17gm PACKET PO SCH (08:53)
--- NOTE | 2017-05-12 11:07 | Discharge Instructions ---
Discharge Plan - Med Rec/Dispo [facility] Instructions: Back Pain (GEN) Prescriptions: New Acetaminophen [Tylenol] 325 - 650 mg PO Q4H PRN tablet PRN Reason: Fever /Headache /Pain Amlodipine [Norvasc] 5 mg PO DAILY tablet Cyclobenzaprine [Flexeril] 10 mg PO TID tablet Hydrocodone/APAP 7.5/325 [[place] 7.5/325] 1 tab PO Q4H PRN tablet PRN Reason: Pain PEG 3350 17gm PACKET [Miralax] 17 gm PO DAILY packet Bumetanide Tab [Bumex] 1 mg PO DAILY #20 tablet Bisacodyl Supp [Dulcolax] 10 mg RECTALLY DAILY PRN supp PRN Reason: Constipation Milk of Magnesia [Mom] 30 ml PO DAILY PRN udc PRN Reason: Constipation Senna + Docusate [Senna Plus Tablet] 2 tab PO BID tablet Continue Aspirin [Blanche Aspirin] 81 mg PO DAILY Multi-Vitamin Plain [Theragran] 1 tab PO DAILY Discontinued Losartan [Cozaar] 50 mg PO DAILY - Disposition 62 To [facility]
--- NOTE | 2017-05-12 11:13 | Pharmacy Consult-Antibiotics ---
Pharmacy Consult-Vancomycin - Laboratory Information WBC 8.9 T/MM3 (4.5-11.0) 05/12/17 04:06 BUN 43.0 MG/DL (9-20) H 05/12/17 04:06 Creatinine 2.9 MG/DL (0.8-1.5) H D 05/12/17 04:06 Procalcitonin 3.86 NG/ML H* 05/10/17 04:03 Vancomycin Trough 11.64 UG/ML (15-20) L 05/12/17 08:18 - Consult Information Vancomyin trough back at 11.6 mcg/ml. Blood cultures show no growth x4 days. No culture and sensitivity results back yet on the coagulase negative starph that grew in urine (not staph aureus). Mr Amato's serum creatinine at 2.9 mg/dl today. Will keep vancomycin at 1250mg IV daily. Thank you.
--- NOTE | 2017-05-12 11:17 | Discharge Summary ---
Discharge Information Date of admission: 05/08/17 14:31 <Ted Elam - 05/12/17 12:44> 05/08/17 14:31 <Natalee Sykes V - 05/12/17 11:24> Attending Physician: Marisela Ellis MD <Ted Elam - 05/12/17 12:44> Marisela Ellis MD <Natalee Sykes V - 05/12/17 11:24> Primary care physician: SUNITA MEANS <Ted Elam - 05/12/17 12:44> SUNITA MEANS <Natalee Sykes V - 05/12/17 11:24> Consults: 05/10/17 Pharmacy Consult [CONS] Routine Pharmacy Consult: Vancomycin Comment: gram-positive UTI, white count 15 K, acute kidney <Ted Ealm - 05/12/17 12:44> 05/10/17 Pharmacy Consult [CONS] Routine Pharmacy Consult: Vancomycin Comment: gram-positive UTI, white count 15 K, acute kidney <Natalee Sykes V - 05/12/17 11:24> - Discharge Diagnosis (1) Upper extremity weakness Problem Details: L>R Status: Acute (2) Muscle spasm of left shoulder Status: Acute (3) Lumbar paraspinal muscle spasm Status: Acute (4) Rhabdomyolysis Status: Acute (5) Acute kidney injury Status: Acute (6) Cervical myelopathy Problem Details: C4-5 fracture; C3-6 fusion 40 years ago Status: Chronic <Ted Elam - 05/12/17 12:44> (1) Upper extremity weakness Problem Details: L>R Status: Acute (2) Muscle spasm of left shoulder Status: Acute (3) Lumbar paraspinal muscle spasm Status: Acute (4) Rhabdomyolysis Status: Acute (5) Acute kidney injury Status: Acute (6) Cervical myelopathy Problem Details: C4-5 fracture; C3-6 fusion 40 years ago Status: Chronic <Natalee Sykes V - 05/12/17 11:13> - Laboratory Labs: 05/12/17 04:06 05/12/17 04:06 <Ted Elam - 05/12/17 12:44> 05/12/17 04:06 05/12/17 04:06 <Natalee Sykes V - 05/12/17 11:24> - Microbiology Microbiology 05/08/17 10:14 Peripheral/Iv Start Blood Culture - Preliminary No Growth After 4 Days 05/08/17 10:17 Peripheral/Iv Start Blood Culture - Preliminary No Growth After 4 Days 05/08/17 11:44 Urine, Voided (Cc/notcc) Urine Culture - Preliminary Coag negative Staphylococcus <Natalee Sykes V - 05/12/17 11:24> - Radiology Radiology: 05/08/17-CT lumbar spine-No evidence for acute traumatic injury of the lumbar spine. 05/08/17-chest x-ray- 1. Obscured left lung base. Infiltrate cannot be entirely excluded in this location. PA and lateral views may be helpful for further evaluation. 2. Right PICC line appears appropriately positioned. 05/12/17-CT cervical spine- IMPRESSION: 1. No evidence for acute fracture or subluxation. 2. Reversal of normal cervical lordosis with bony fusion and posterior fixation/cerclage wires as described above. 3. Moderate spondylosis throughout the cervical and upper thoracic spine. <Natalee Sykes Cayetano - 05/12/17 11:24> - Pathology none <Natalee Sykes V 05/12/17 11:24> History of Present Illness HPI: 61 year old morbidly obese male presents to the ER with complaints of pain. He states he had 2 falls in the last 2 days, the first was on the [place], where the patient tripped/stumbling and falling backwards and struck the lumbar region of his back against a cabinet handle in his kitchen. Patient had immediate pain, but was able to get up without difficulty, and although he was having pain continued his normal activities. Yesterday the patient had another fall where he slid down stairs, partially on his back and partially on his stomach. He then awoke this morning with significant pain in the muscular region of his deltoid and left trapezius, as well as significant lumbar back pain. Patient has tried 3 Tylenol tablets at home without relief. In the ED, CT imaging per report reveals no acute bony abnormality. However, he has significant muscle spasming and pain. He was given toradol, norflex, and dilaudid with some improvement. However, he is apprehensive of returning home and does not think he can take care of himself. He had a C4/5 fracture 40 years ago, and has been able to function well at home up until this point he states. Thus, he is being placed under observation status for further pain control. Please note this patient encounter was performed via the use of telemedicine technology <Natalee Sykes V - 05/12/17 11:24> Hospital Course This is a general summary of the patient's hospital course. For more details refer to the complete medical record. <Ted Elam D - 05/12/17 12:44> This is a general summary of the patient's hospital course. For more details refer to the complete medical record. <OnelNatalee Cayetano - 05/12/17 11:24> Hospital course: 05/08/17 Patient admitted after several falls and rhabdomyolysis with CPK of 41,512. High -volume fluids initiated. PICC line placed due to difficulty with phlebotomy and IV access. Transaminases elevated consistent with rhabdo. Significant weakness bilateral upper and lower extremities-remote cervical fracture, probable myelopathy. Continue home medications for hypertension, and home CPAP for SUSAN. 05/09/17 16:26 Rhabdomyolysis - CK starting to trend down (peaked at 79,644, now at 61,563) - continue IVF & monitor for overload DEONDRE -Cr increased to 2.3 -repeat BMP in am -continue Walsh and I&Os Hyponatremia -mild, 133 -continue IVF SIRS -leukocytosis with left shift, fever, elevated procalcitonin -no evidence of infection; BC neg at 1 day -urine cx shows prelim. growth but UA is not indicative of UTI -? trauma effects Falls -fairly chronic -chronic lower ext weakness, hx C4-C5 fx -IRU once medically stable 05/10/17 17:47 Creatinine continues to climb although urine output is good and weight of climb is slowing. CPK slowly dropping-continue high-volume fluids although rate decreased to 125/ hr; acetate discontinued as an alkalinizing agent due to shortage. Low-volume Lasix added as patient is up about 12 kg from admission and fluid volume is significantly positive. May require Bumex to promote diuresis due to renal insufficiency. No further fever of significance (100.3 overnight), white count normal; and hyponatremia has corrected. 05/10/17 17:52 07/09/17 13:53 *Recurrent falls due to gait instability; Generalized muscle pain and weakness. Known remote hx of C-Spine stenosis s/p surgery. Will order CT of C-spine in am due to weakness and falls onset prior to rhabdo. *Rhabdo with Acute Renal Failure-He is slowly improving. SCr continues to climb, but the rate of climb is slowing. CPK is trending down. Will hold off on transfer to rehab until CPK is less than 20k. Continue IVF, Bumex to flush system. *Generalized weakness, muscle pain- Transfer to rehab when medically stable. CT c-spine in am given c/o upper arm weakness and pain. This may be due to rhabdo, but would like to exclude hardware failure *Leukocytosis- UTI, Coag negative staph- Continue Vanco with pharmacy assist with renal dosing. CT C-spine to look at hardware. Some leukocytosis is likely reactive due to acute illness. Follow daily labs. *HTN- BP is trending up. Holding Cozaar due to DEONDRE. Start low dose Norvasc. Avoid excessive lowering so that we don't impede renal perfusion. 05/12/17- Discharge Overall Don is feeling good today and he verbalizes that he is ready to continued rehabilitation. We will transfer to IRU this afternoon. Vancomycin will be discontinued. Will continue to medically follow patient and monitor blood pressure as his home Cozaar will remain stopped due to acute kidney injury. Continue to follow routine laboratory studies to monitor renal function. Creatine did decrease to 2.9 today. CK continues to trend down and is 13,067. He will continue to utilize BiPAP at night. Overall Don is making good gains. <Natalee Sykes V - 05/12/17 11:24> Discharge Plan - Med Rec/Dispo Referrals/Follow Up: <Ted Elam - 05/12/17 12:44> [place] Instructions: Back Pain (GEN) <Ted Elam - 05/12/17 12:44> Prescriptions: New Acetaminophen [Tylenol] 325 - 650 mg PO Q4H PRN tablet PRN Reason: Fever /Headache /Pain Amlodipine [Norvasc] 5 mg PO DAILY tablet Cyclobenzaprine [Flexeril] 10 mg PO TID tablet Hydrocodone/APAP 7.5/325 [[place] 7.5/325] 1 tab PO Q4H PRN tablet PRN Reason: Pain PEG 3350 17gm PACKET [Miralax] 17 gm PO DAILY packet Bumetanide Tab [Bumex] 1 mg PO DAILY #20 tablet Bisacodyl Supp [Dulcolax] 10 mg RECTALLY DAILY PRN supp PRN Reason: Constipation Milk of Magnesia [Mom] 30 ml PO DAILY PRN udc PRN Reason: Constipation Senna + Docusate [Senna Plus Tablet] 2 tab PO BID tablet Continue Aspirin [[place] Aspirin] 81 mg PO DAILY Multi-Vitamin Plain [Theragran] 1 tab PO DAILY Discontinued Losartan [Cozaar] 50 mg PO DAILY <Ted Elam - 05/12/17 12:44> Discharge to [facility]/IRU/[facility]: <Ted Elam - 05/12/17 12:44> <Natalee Sykes V - 05/12/17 11:24> - Disposition 61 To [facility] INPT Re[facility] <Ted Elam - 05/12/17 12:44> - Attestation Attestation Narrative: 05/12/17 12:41 Have independently interviewed and examined pt. Chart reviewed. Case discussed with CM and my GLOVE PRINTER. Care plan developed with my supervision; agree with above. Doing okay today. Worked with therapy. Notes appetite decreased; slight nausea but mainly not as hungry. Stools still very slow. Breathing well without SOA, cough or congestion. No chest pain. No f/c. Lungs: decreased, no distress CV: regular AB: soft nt/nd BS decreased MSE: awake alert appropriate Plan: Will d/c to IRU to maximize functional status. ARB stopped due to DEONDRE. Will need to continue to monitor renal function. Can stop Vancomycin. Encourage therapy. Pt medically stable for d/c to IRU. See orders for details. <Ted Elam - 05/12/17 12:43>
[2017-05-12] MEDS ORDERED: NEOMYCIN/POLYMYXIN/BACITRACIN OINT PACKET TP PRN (12:39)
== END 2017-05-12 13:45 | DRG 558 ==
LOC: ED 03:33 → MED 03:33 → SRG 03:33 → MED 06:40 → SRG 07:00 → UNDODISIN 05-12 13:45
PROVIDERS: ADMIT Hospitalist; ATTEND Internal Medicine

== ENCOUNTER 2017-05-12 14:35 | Inpatient (IN) ==
[2017-05-12] MEDS ORDERED: ACETAMINOPHEN 325 MG TABLET PO PRN ×2 (14:50→16:38)
[2017-05-12 14:52] VITALS: BMI 44.1
[2017-05-12] MEDS ORDERED: POLYETHYL GLYCOL 3350 17gm PACKET PO PRN (16:38)
[2017-05-12] MEDS ORDERED: BISACODYL 10 MG SUPPOSITORY RECTALLY PRN (16:38)
[2017-05-12] MEDS ORDERED: NEOMYCIN/POLYMYXIN/BACITRACIN OINT PACKET TP PRN (17:37)
[2017-05-12] MEDS: CYCLOBENZAPRINE 10 MG TABLET PO SCH (20:21)
[2017-05-12] MEDS: HYDROCODONE/APAP 7.5 MG/325 MG TABLET PO PRN (20:22)
[2017-05-12] MEDS: SENNA + DOCUSATE TABLET PO SCH (21:08)
[2017-05-13] MEDS: HYDROCODONE/APAP 7.5 MG/325 MG TABLET PO PRN ×3 (00:18→18:06)
[2017-05-13] MEDS ORDERED: FALL RISK - PHARMACY CONSULT XX PRN (03:39)
[2017-05-13] MEDS ORDERED: AMLODIPINE 5 MG TABLET PO SCH (09:00)
[2017-05-13] MEDS ORDERED: POLYETHYL GLYCOL 3350 17gm PACKET PO SCH (09:00)
[2017-05-13] MEDS ORDERED: LOSARTAN 50 MG TABLET PO SCH (09:00)
[2017-05-13] MEDS: BUMETANIDE 1 MG TABLET PO SCH (10:18)
[2017-05-13] MEDS: CYCLOBENZAPRINE 10 MG TABLET PO SCH ×3 (10:18→21:35)
[2017-05-13] MEDS: ASPIRIN *EC* 81 MG TABLET PO SCH (10:18)
[2017-05-13] MEDS: MULTI-VITAMIN PLAIN TABLET PO SCH (10:19)
[2017-05-13] MEDS: SENNA + DOCUSATE TABLET PO SCH (10:20)
--- NOTE | 2017-05-13 13:29 | Consult Note ---
<Natalee Sykes V - Last Filed: 05/13/17 13:18> Consult Information - Data of Consult Patient: known to practice within the last 3 years Consult date: 05/13/17 Requesting Physician: Marito Lee MD Primary Care Provider: SUNITA BROWN Family Provider: SUNITA BROWN - Consult Narrative Reason for consult: medical management of hypertension, asthma History of present illness: Shane is a pleasant 61-year-old gentleman who is known to the hospitalist services as he was recently admitted under the acute medical care. He was initially admitted for intractable back pain accompanied with rhabdomyolysis along with general weakness. He was found to have urinary in tract infection and was placed on vancomycin. He was hydrated and laboratory studies were trended down. Due to his ongoing weakness, accompanied with ongoing pain and recent falls. He was accepted to the IRU unit for ongoing rehabilitation and strengthening. Shane is seen this morning during breakfast for initial medical consultation. He is alert and oriented. States that he is doing well other than feeling somewhat stiff from sleeping overnight. Did review this morning's laboratory studies white count is normal at 10.2, hemoglobin 12.5, hematocrit 37.4, platelet count 227. Chemistry is 142, potassium 3.5, BUN 45, creatinine 2.5. PFSH Patient Stated Medical History Paralysis Yes: when neck fracture Cataracts Yes Hypertension Yes Asthma Yes Sleep Apnea Yes Constipation Yes Gastroesophageal Reflux Yes Disease Hx Incontinence No Hx Renal Disease No Hx Urinary Tract Infection Yes Other Musculoskeletal Yes: NECK FRACTURE, TORN MENISCUS R Blood Transfusions Yes: POSSIBLE WITH NECK SURGERY Recent acute kidney injury following Rhabdomylosis Surgical History: Portable left meniscus. C4/5 fracture with fusion. 2 hernia repairs as a child. Tonsillectomy Family History: Father with coronary artery disease Mother from CLL and colon cancer - Social History Smoking status: Current every day smoker Alcohol intake: current Alcohol intake frequency: holidays/special occasions only Household members: spouse Current occupational status: employed (CPA) Current residence: Apartment/Private Home Social history: Dr Sunita Brown Review of Systems All systems: reviewed and no additional remarkable complaints except as stated Review of systems: All ROS was denied by paitnet other that "stiffness and fatigue" Medications Home Medications Medication Instructions Recorded Confirmed Type Aspirin [[place] Aspirin] 81 mg PO DAILY 05/08/17 05/08/17 History Multi-Vitamin Plain [Theragran] 1 tab PO DAILY 05/08/17 05/08/17 History Allergies Allergy/AdvReac Type Severity Reaction Status Date / Time Sulfa (Sulfonamide Allergy Verified 05/08/17 07:10 Antibiotics) Exam Vital Signs: Temperature 98.3 F 05/13/17 10:11 Pulse Rate 110 H 05/13/17 10:11 Respiratory Rate 18 05/13/17 10:11 Blood Pressure 157/85 H 05/13/17 10:11 Pulse Oximetry 95 05/13/17 10:11 Oxygen Delivery Method Room Air Height: 1.78 m Weight: 139.6 kg Body Mass Index: 44.1 - Constitutional Present: no acute distress - Routine HEENT Exam Head: Present: normocephalic, atraumatic Eye: Present: EOMI, PERRL ENT: Present: mucous membranes moist - Routine Neck Exam Present: supple, full ROM - Routine Respiratory Exam Present: CTA bilaterally - Routine Cardiovascular Exam Present: RRR, S1, S2 - Routine Abdominal Exam Present: soft, normoactive bowel sounds - Routine Extremities Exam Present: full ROM - Routine Back/Spine/Pelvis Exam Back/Spine: Present: full ROM - Routine Skin Exam Present: intact, dry, warm - Routine Neurological Exam Present: alert, oriented X3, CN II-XII intact Results - Labs CBC & Chem 7: 05/13/17 04:46 05/13/17 04:46 Assessment and Plan (1) Acute kidney injury Current visit: No Status: Acute (2) Lumbar paraspinal muscle spasm Current visit: No Status: Acute (3) Muscle spasm of left shoulder Current visit: No Status: Acute (4) Muscle spasm of right shoulder Current visit: No Status: Acute (5) Rhabdomyolysis Current visit: No Status: Acute (6) Upper extremity weakness Problem details: L>R Current visit: No Status: Acute (7) Cervical myelopathy Problem details: C4-5 fracture; C3-6 fusion 40 years ago Current visit: No Status: Chronic (8) Hypokalemia Current visit: Yes Status: Acute Assessment and Plan: Agree with admission to inpatient rehabilitation unit for ongoing strenghtening and improved function given weakness with recent falls. Renal function does continue to improve, however, is not back at baseline. Salon Stylist today is 2.5 (Baseline appears to be 1.0-1.5). Will continue to hold Cozaar at this time as this can be nephrotoxic Blood pressures are elevated. Will increase Norvasc to 10 mg daily for better control Have asked nursing staff to bladder retraining with Vaca catheter and will plan to discontinue Vaca tomorrow morning. Potassium today is slightly decreased to 3.5. will give a one time order of 40 MEQ today. Will recheck BMP and CK (was 13,067 on 05/12) tomorrow morning. Encourage continued work with PT and OT for strengthening under the care of Dr Lee At time of discharge, patient's medical care will return to his primary care provider, Dr. Brown in [facility] Course Summary Disclaimer: The visit summary below is not to be considered part of the above Progress Note. Hospital Course: 05/13/17 Agree with admission to inpatient rehabilitation unit for ongoing strenghtening and improved function given weakness with recent falls. Renal function does continue to improve, however, is not back at baseline. Salon Stylist today is 2.5 (Baseline appears to be 1.0-1.5). Will continue to hold Cozaar at this time as this can be nephrotoxic Blood pressures are elevated. Will increase Norvasc to 10 mg daily for better control Have asked nursing staff to bladder retraining with Vaca catheter and will plan to discontinue Vaca tomorrow morning. Potassium today is slightly decreased to 3.5. will give a one time order of 40 MEQ today. Will recheck BMP and CK (was 13,067 on 05/12) tomorrow morning. Encourage continued work with PT and OT for strengthening under the care of Dr Lee At time of discharge, patient's medical care will return to his primary care provider, Dr. Brown in [place] Sepsis Assessment - Evaluation Sepsis screening result: No Definite Risk <Ted Elam - Last Filed: 05/13/17 16:16> Consult Information - Data of Consult Requesting Physician: Marito Lee MD Primary Care Provider: SUNITA BROWN Family Provider: SUNITA BROWN [facility] Patient Stated Medical History Paralysis Yes: when neck fracture Cataracts Yes Hypertension Yes Asthma Yes Sleep Apnea Yes Constipation Yes Gastroesophageal Reflux Yes Disease Hx Incontinence No Hx Renal Disease No Hx Urinary Tract Infection Yes Other Musculoskeletal Yes: NECK FRACTURE, TORN MENISCUS R Blood Transfusions Yes: POSSIBLE WITH NECK SURGERY Exam Vital Signs: Temperature 98.3 F 05/13/17 10:11 Pulse Rate 110 H 05/13/17 10:11 Respiratory Rate 18 05/13/17 10:11 Blood Pressure 157/85 H 05/13/17 10:11 Pulse Oximetry 95 05/13/17 10:11 Oxygen Delivery Method Room Air Height: 1.78 m Weight: 139.6 kg Results - Labs CBC & Chem 7: 05/13/17 04:46 05/13/17 04:46 Assessment and Plan (1) Acute kidney injury Current visit: No Status: Acute (2) Rhabdomyolysis Current visit: No Status: Acute (3) Hypokalemia Current visit: Yes Status: Acute (4) Upper extremity weakness Problem details: L>R Current visit: No Status: Acute (5) Muscle spasm of right shoulder Current visit: No Status: Acute (6) Muscle spasm of left shoulder Current visit: No Status: Acute (7) Lumbar paraspinal muscle spasm Current visit: No Status: Acute (8) Cervical myelopathy Problem details: C4-5 fracture; C3-6 fusion 40 years ago Current visit: No Status: Chronic (9) SUSAN on CPAP Current visit: Yes Status: Acute (10) Morbid obesity Current visit: Yes Status: Acute Resuscitation Status: Full Code Assessment and Plan: Have independently interviewed and examined pt. Chart reviewed. Case discussed with my SAMPLE FINISHER. Above care plan developed with my supervision; agree with above. Doing okay today-had big day of therapy. Tolerated therapy-tired and sore. Not having increased pain to his shoulder. Breathing doing well. No chest pressure or pain. Eating well. No nausea or ab pain. Bowels moving well (too well per pt report). Tolerating vaca. Lungs; decreased, no crackles or wheezes. CV: regular AB: soft Obses nt/nd MSE: awake alert appropriate Plan: Agree with admission of patient to IRU to maximize his functional status. Hold Cozaar-monitor renal function. Bladder retaining-hope to remove vaca in near future. Encourage therapy. Continue home CPAP-pt has found this to be very beneficial. Will stop daily senna and miralax - continue prn medication for bowel function. Will need to monitor BMP and CPK during hospitalization. Medically stable for IRU floor activities. Hospital Course Summary Disclaimer: The visit summary below is not to be considered part of the above Progress Note.
[2017-05-14] MEDS: HYDROCODONE/APAP 7.5 MG/325 MG TABLET PO PRN ×3 (01:35→21:01)
--- NOTE | 2017-05-14 07:29 | IRU History & Physical Report ---
HPI IRU Date: Chief complaint: debility post rhabdomyolysis episode. HPI: 61 yo male with a history of rhabdomyolysis due to immobility with severe chronic back pain. He was admitted with elevated CK and then developed UTI. He has been unable to return home due to weakness and debility from hospitalization. He is willing to work with PT and OT 3 hours daily and will be admitted to IRU. Review of Systems All systems: reviewed and no additional remarkable complaints except as stated PFSH Patient Stated Medical History Paralysis Yes: when neck fracture Cataracts Yes Hypertension Yes Asthma Yes Sleep Apnea Yes Constipation Yes Gastroesophageal Reflux Yes Disease Hx Incontinence No Hx Renal Disease No Hx Urinary Tract Infection Yes Other Musculoskeletal Yes: NECK FRACTURE, TORN MENISCUS R Blood Transfusions Yes: POSSIBLE WITH NECK SURGERY Surgical History: Portable left meniscus. C4/5 fracture with fusion. 2 hernia repairs as a child. Tonsillectomy Family History: neg - Social History Smoking status: Current every day smoker Substance use type: does not use Current residence: Apartment/Private Home Medications Home Medications Medication Instructions Recorded Confirmed Type Aspirin [[place] Aspirin] 81 mg PO DAILY 05/08/17 05/08/17 History Multi-Vitamin Plain [Theragran] 1 tab PO DAILY 05/08/17 05/08/17 History Allergies Allergy/AdvReac Type Severity Reaction Status Date / Time Sulfa (Sulfonamide Allergy Verified 05/08/17 07:10 Antibiotics) Exam Vital Signs: Temperature 98.8 F 05/14/17 00:00 Pulse Rate 69 05/14/17 00:00 Respiratory Rate 18 05/14/17 00:00 Blood Pressure 106/67 05/14/17 00:00 Pulse Oximetry 95 05/14/17 00:00 Oxygen Delivery Method Room Air Telemetry Rhythm: Sinus Rhythm Height: 1.78 m Weight: 139.6 kg Body Mass Index: 44.1 - Constitutional Present: no acute distress - Routine HEENT Exam Eye: Present: EOMI ENT: Present: mucous membranes moist, dentition normal - Routine Respiratory Exam Present: CTA bilaterally. Absent: wheezes - Routine Cardiovascular Exam Present: RRR. Absent: murmur Sepsis Assessment - Evaluation Sepsis screening result: No Definite Risk IRU A/P (1) Myopathy Current visit: Yes Status: Acute PT and OT to develop plan of care to increase strength and stability. (2) Hypokalemia Current visit: Yes Status: Acute medical to manage (3) Rhabdomyolysis Current visit: No Status: Acute PT and OT will work with medical to facilitate mobility Resuscitation Status: Full Code - Course Hospital Course: Marito Lee MD: - Interventions to Obtain Goals PT Treatment Plan: Balance/Proprioception, Functional Activities, Gait Training , Patient/Family Education, Therapeutic Exercise OT Treatment Plan: ADL (Basic Care), Balance Training, IADL, Pt./Family Education, Ther. Exercise for ADL
--- NOTE | 2017-05-14 07:42 | IRU 24Hr Post Admit Eval ---
24 Hr Post Admission Physical - Relevant Changes Relevant Changes: No Reviewed: I have reviewed the patient's information and concur with the finding and results of the pre-admission screen. Certification: I certify the patient for rehabilitation. - Patient Condition (1) Myopathy Status: Acute Code(s): G72.9 - Myopathy, unspecified (2) Hypokalemia Status: Acute Code(s): E87.6 - Hypokalemia (3) Rhabdomyolysis Status: Acute Code(s): M62.82 - Rhabdomyolysis - Prior Functional Status Lives With: Alone Residence Type: Apartment/Private Home Assitive Devices: None Prior Functional Status: Indep. at home or school - Current Functional Status Failed Alternative Therapy: Arrived from Acute Care Patient Requirements: The patient requires oversight by rehabilitation physician to manage their rehabilitation treatment plan and multidisciplinary approach to care that can only be provided in an IRF and requires a multidisciplinary approach to care, provided by professional PTs, OTs, STs, dieticians, RTs, rehabilitation nurses and is not available in lesser levels of care. Limitiations Req: ADL Impairment Physical Therapy Minutes: 90 Occupational Therapy Minutes: 90 Therapy: The patient is to receive therapy at least 5 days a week. - Complications/Comorbidities Impact on Functional Outcomes: With PT and OT involvement , pt should return to pre-episode function. Barriers to Discharge: Weakness, Balance, Endurance, Pain Control, Medical Limitation - Plan to Avoid Complications Plan to Avoid Complications: The patient cannot receive this care in a lesser intensive setting such as [facility] or Outpatient Therapy due to the patient requiring tclose monitoring during recovery from rhabdomyolysis .
[2017-05-14] MEDS: BUMETANIDE 1 MG TABLET PO SCH (08:26)
[2017-05-14] MEDS: ASPIRIN *EC* 81 MG TABLET PO SCH (08:26)
[2017-05-14] MEDS: MULTI-VITAMIN PLAIN TABLET PO SCH (08:27)
[2017-05-14] MEDS: AMLODIPINE 10 MG TABLET PO SCH (08:27)
[2017-05-14] MEDS: CYCLOBENZAPRINE 10 MG TABLET PO SCH ×3 (08:30→21:01)
--- NOTE | 2017-05-14 17:22 | Wound Care Progress Note ---
Wound Center Progress Note: Pt sitting in chair at bedside working on computer, discussed pt's bottom being red and that sitting will only increase the possibility for pressure injury. Pt verablized that he understood. Discussed several ways to change position and not sitting in chair all the time. No interventions at this time pt was unwilling to get up for a physical assessment.
[2017-05-15] MEDS: HYDROCODONE/APAP 7.5 MG/325 MG TABLET PO PRN ×3 (07:43→20:57)
[2017-05-15] MEDS: ASPIRIN *EC* 81 MG TABLET PO SCH (08:30)
[2017-05-15] MEDS: CYCLOBENZAPRINE 10 MG TABLET PO SCH ×3 (08:30→20:57)
[2017-05-15] MEDS: AMLODIPINE 10 MG TABLET PO SCH (08:30)
[2017-05-15] MEDS: BUMETANIDE 1 MG TABLET PO SCH (08:30)
[2017-05-15] MEDS: MULTI-VITAMIN PLAIN TABLET PO SCH (08:31)
--- NOTE | 2017-05-15 13:39 | Progress Note ---
<Nina Maher D - Last Filed: 05/15/17 14:49> Subjective: Don is feeling much better. He feels like he is safe to return home. He denies any pain. He denies any shortness of breath or chest pain. He has been eating well and denies any abdominal pain or GI complaints. Objective Vital signs: Temperature 97.8 F 05/15/17 08:25 Pulse Rate 89 05/15/17 08:25 Respiratory Rate 20 05/15/17 08:25 Blood Pressure 137/81 05/15/17 10:10 Pulse Oximetry 92 05/15/17 08:25 Oxygen Delivery Method Room Air Body Mass Index: 44.1 - Constitutional Present: no acute distress, well nourished, well developed, obese - Routine HEENT Exam ENT: Present: mucous membranes moist, oropharynx clear - Routine Respiratory Exam Present: CTA bilaterally - Routine Abdominal Exam Present: soft, normoactive bowel sounds, non tender - Routine Extremities Exam Present: no edema - Routine Musculoskeletal Exam Musculoskeletal: Present: moving extremities well, other (braces bilateral lower extremities) - Routine Skin Exam Present: intact, dry, warm - Routine Neurological Exam Present: alert, oriented X3 - Routine Psychiatric Exam Present: normal thought process. Absent: normal affect (flat affect) Results - Labs CBC & Chem 7: 05/13/17 04:46 05/14/17 04:47 Assessment and Plan (1) Rhabdomyolysis Current visit: No Status: Acute (2) Hypokalemia Current visit: Yes Status: Acute (3) Myopathy Current visit: Yes Status: Acute Assessment and Plan: Medically, patient is doing well. His creatinine has decreased to 2.2. We'll continue to hold Cozaar. Hold Bumex. Recheck BMP in am. HTN: BP has been elevated with diastolic >100 mm Hg at times - He's on max dose of Norvasc; Bumex 1 mg daily. D/W Dr. Elam - with DEONDRE, observe for now - may initiate another agent in the future. Rhabdo: CK continues to trend down. He has been able to void since the Walsh catheter was discontinued. DC plans: discussed with ZOE Cottrell. Sepsis Assessment - Evaluation Sepsis screening result: No Definite Risk Hospital Course Summary Disclaimer: The visit summary below is not to be considered part of the above Progress Note. Hospital Course: 05/13/17 Agree with admission to inpatient rehabilitation unit for ongoing strenghtening and improved function given weakness with recent falls. Renal function does continue to improve, however, is not back at baseline. Scrap Stripper Hand today is 2.5 (Baseline appears to be 1.0-1.5). Will continue to hold Cozaar at this time as this can be nephrotoxic Blood pressures are elevated. Will increase Norvasc to 10 mg daily for better control Have asked nursing staff to bladder retraining with Walsh catheter and will plan to discontinue Walsh tomorrow morning. Potassium today is slightly decreased to 3.5. will give a one time order of 40 MEQ today. Will recheck BMP and CK (was 13,067 on 05/12) tomorrow morning. Encourage continued work with PT and OT for strengthening under the care of Dr Lee At time of discharge, patient's medical care will return to his primary care provider, Dr. Brown in [place] 05/15/17 14:51 Medically, patient is doing well. His creatinine has decreased to 2.2. We'll continue to hold Cozaar. Hold Bumex. Recheck BMP in am. HTN: BP has been elevated with diastolic >100 mm Hg at times - He's on max dose of Norvasc; Bumex 1 mg daily. D/W Dr. Elam - with DEONDRE, observe for now - may initiate another agent in the future. Rhabdo: CK continues to trend down. He has been able to void since the Walsh catheter was discontinued. DC plans: discussed with ZOE Cottrell. <Ted Elam - Last Filed: 05/15/17 19:02> Objective Vital signs: Temperature 97.7 F 05/15/17 15:48 Pulse Rate 85 05/15/17 15:48 Respiratory Rate 16 05/15/17 15:48 Blood Pressure 158/77 H 05/15/17 15:48 Pulse Oximetry 98 05/15/17 15:48 Oxygen Delivery Method Room Air Results - Labs CBC & Chem 7: 05/13/17 04:46 05/14/17 04:47 Assessment and Plan (1) Rhabdomyolysis Current visit: No Status: Acute (2) Hypokalemia Current visit: Yes Status: Acute (3) Myopathy Current visit: Yes Status: Acute Assessment and Plan: Have independently interviewed and examined pt. Chart reviewed. Case discussed with my [employer] OPERATOR. Above care plan developed with my supervision; agree with above. Doing well overall. Strength and functional status improving. Breathing well. Urinating well-frequent with Bumex use. Lungs: decreased, no distress Gen: looks much more strong; ambulating well Plan: Continue to hold Cozaar. Can stop Bumex. Monitor BP. Encourage therapy and activities. Medically progressing well. Stable for IRU floor activities. Hospital Course Summary Disclaimer: The visit summary below is not to be considered part of the above Progress Note.
--- NOTE | 2017-05-15 15:23 | IRU Plan of Care ---
IRU Overall Plan of Care - Patient Impairments (1) Rhabdomyolysis Code(s): M62.82 - Rhabdomyolysis Status: Acute Classification: Present on IRF Admission, IRF Tx That Should Address Diagnosis, Diagnosis Requiring Medical Follow Up (2) Hypokalemia Code(s): E87.6 - Hypokalemia Status: Acute Classification: Present on IRF Admission, Diagnosis Requiring Medical Follow Up (3) Myopathy Code(s): G72.9 - Myopathy, unspecified Status: Acute Classification: Present on IRF Admission, IRF Tx That Should Address Diagnosis - Relevant Changes Relevant Changes: No Reviewed: I have reviewed the patient's information and concur with the finding and results of the pre-admission screen. Certification: I certify the patient for rehabilitation. - Medical Prognosis Medical Prognosis: Fair Vital Signs: Last Vital Signs Temp 97.8 F 05/15/17 08:25 Pulse 89 05/15/17 08:25 Resp 20 05/15/17 08:25 BP 137/81 05/15/17 10:10 Pulse Ox 92 05/15/17 08:25 - Anticipated Interventions Anticipated Interventions: The patient requires inpatient IRF care for PT, OT, and/or ST for residuals remaining from [] resulting in muscular weakness and strength deficits. ROM Deficit: Right Lower Extremity, Left Lower Extremity - FIM Ambulation Distance: 109 Wheelchair Propulsion Distance: 162 Toileting Adaptive Equipment: Grab Bars Number of Continent Voids: 3 - Current Functional Status Failed Alternative Therapy: Yes Patient Requires: The patient requires oversight by rehabilitation physician to manage their rehabilitation treatment plan and multidisciplinary approach to care that can only be provided in an IRF and requires a multidisciplinary approach to care, provided by professional PTs, OTs, STs, dieticians, RTs, rehabilitation nurses and is not available in lesser levels of care. Physical Therapy Minutes: 90 Occupational Therapy Minutes: 90 Therapy: The patient is to receive therapy at least 5 days a week. - Anticipated LOS/Outcomes Anticipated Functional Outcome: Improvement in status, return to the rhabdo status with PT and OT support Anticipated DC Destination: Home Health Service Home Safety Plan: The patient will be provided with the development of a Home Safety Plan for return to a home or home-like environment and and to ensure safety post discharge. - Plan to Avoid Complications Barriers to Attaining Goals: Weakness, Balance, Endurance, Pain Control Plan to Avoid Complications: The patient cannot receive this care in a lesser intensive setting such as [facility] or Outpatient Therapy due to the patient requiring medical supervision of rhabdomyolysis and renal function during physical therapy and occupational therapy treatment.
[2017-05-16] MEDS: HYDROCODONE/APAP 7.5 MG/325 MG TABLET PO PRN ×3 (07:28→20:31)
[2017-05-16] MEDS: AMLODIPINE 10 MG TABLET PO SCH (08:27)
[2017-05-16] MEDS: CYCLOBENZAPRINE 10 MG TABLET PO SCH ×3 (08:27→20:31)
[2017-05-16] MEDS: ASPIRIN *EC* 81 MG TABLET PO SCH (08:27)
[2017-05-16] MEDS: MULTI-VITAMIN PLAIN TABLET PO SCH (08:27)
--- NOTE | 2017-05-16 14:32 | IRU Progress Note ---
- Subjective/Serverity of Illness Pt still difficult to motivate, but is trying. He enjoys some of thestaff. Out to meals. Exam Vital Signs: Temperature 98.2 F 05/16/17 08:00 Pulse Rate 84 05/16/17 08:00 Respiratory Rate 16 05/16/17 08:00 Blood Pressure 163/85 H 05/16/17 08:00 Pulse Oximetry 94 05/16/17 08:00 Oxygen Delivery Method Room Air Telemetry Rhythm: Sinus Rhythm Height: 1.78 m Weight: 139.6 kg Body Mass Index: 44.1 - Constitutional Present: no acute distress - Routine HEENT Exam Eye: Present: EOMI, PERRL - Routine Neck Exam Present: supple, full ROM - Routine Chest/Breast/Axilla Exam Chest wall: Absent: tenderness - Routine Respiratory Exam Present: CTA bilaterally. Absent: wheezes, crackles - Routine Cardiovascular Exam Present: RRR, no murmur - Routine Abdominal Exam Present: soft, normoactive bowel sounds. Absent: tenderness, rebound, guarding Results IRU - Labs Labs: Labs for admit period reviewed/ Sepsis Assessment - Evaluation Sepsis screening result: No Definite Risk IRU A/P (1) Rhabdomyolysis Current visit: No Status: Acute Managed by Medical Labs followed. Pt is improvingl (2) Hypokalemia Current visit: Yes Status: Acute Managed by Medical (3) Myopathy Current visit: Yes Status: Acute Cont with increased fluids. PT adn OT working to strengthen pt and helploosed up muscles. Cont with plan of care. Reeval on friday. DVT Prophylaxis: SCD's Resuscitation Status: Full Code - Course Hospital Course: Marito Lee MD: - Interventions to Obtain Goals PT Treatment Plan: Balance/Proprioception, Functional Activities, Gait Training , Patient/Family Education, Therapeutic Exercise OT Treatment Plan: ADL (Basic Care), Balance Training, IADL, Pt./Family Education, Ther. Exercise for ADL
[2017-05-16] MEDS ORDERED: SALIVA SUBSTITUTE MOUTHWASH 237ml MM PRN (15:23)
[2017-05-17] MEDS: HYDROCODONE/APAP 7.5 MG/325 MG TABLET PO PRN ×3 (04:45→21:55)
[2017-05-17] MEDS: MULTI-VITAMIN PLAIN TABLET PO SCH (08:39)
[2017-05-17] MEDS: ASPIRIN *EC* 81 MG TABLET PO SCH (08:39)
[2017-05-17] MEDS: AMLODIPINE 10 MG TABLET PO SCH (08:39)
[2017-05-17] MEDS: CYCLOBENZAPRINE 10 MG TABLET PO SCH ×3 (08:39→21:55)
[2017-05-18] MEDS: MULTI-VITAMIN PLAIN TABLET PO SCH (09:09)
[2017-05-18] MEDS: ASPIRIN *EC* 81 MG TABLET PO SCH (09:09)
[2017-05-18] MEDS: CYCLOBENZAPRINE 10 MG TABLET PO SCH ×3 (09:09→20:48)
[2017-05-18] MEDS: HYDROCODONE/APAP 7.5 MG/325 MG TABLET PO PRN ×2 (09:10→20:48)
[2017-05-18] MEDS: AMLODIPINE 10 MG TABLET PO SCH (09:10)
[2017-05-19] MEDS: MULTI-VITAMIN PLAIN TABLET PO SCH (08:47)
[2017-05-19] MEDS: AMLODIPINE 10 MG TABLET PO SCH (08:47)
[2017-05-19] MEDS: ASPIRIN *EC* 81 MG TABLET PO SCH (08:47)
[2017-05-19] MEDS: CYCLOBENZAPRINE 10 MG TABLET PO SCH ×3 (08:47→20:50)
[2017-05-19] MEDS: HYDROCODONE/APAP 7.5 MG/325 MG TABLET PO PRN ×2 (08:51→20:50)
--- NOTE | 2017-05-19 09:03 | IRU Progress Note ---
- Subjective/Serverity of Illness Pt fatigued but working to improve strength. Requiring some encouragement fromstaff. Exam Vital Signs: Oxygen Delivery Method Room Air Telemetry Rhythm: First Degree AV Block Height: 1.78 m Weight: 139.6 kg Body Mass Index: 44.1 - Constitutional Present: no acute distress - Routine Chest/Breast/Axilla Exam Chest wall: Absent: tenderness - Routine Respiratory Exam Present: CTA bilaterally - Routine Cardiovascular Exam Present: RRR, no murmur. Absent: murmur - Routine Abdominal Exam Absent: non tender Sepsis Assessment - Evaluation Sepsis screening result: No Definite Risk IRU A/P (1) Rhabdomyolysis Current visit: No Status: Acute Improving. Cont with increased fluids, gentle exercise. avoid alcohol. PT andOT to stay involved. (2) Hypokalemia Current visit: Yes Status: Acute Managed by Medical (3) Myopathy Current visit: Yes Status: Acute Pt working with staff, but needs to be more active to qualify for nsurance support of admission. DVT Prophylaxis: SCD's Resuscitation Status: Full Code - Course Hospital Course: Marito Lee MD: - Interventions to Obtain Goals PT Treatment Plan: Balance/Proprioception, Functional Activities, Gait Training , Patient/Family Education, Therapeutic Exercise OT Treatment Plan: ADL (Basic Care), Balance Training, IADL, Pt./Family Education, Ther. Exercise for ADL
--- NOTE | 2017-05-19 09:09 | IRU Progress Note ---
- Subjective/Serverity of Illness Pt feels he is being more active, but does not see improvement. A little frustrated right now. Exam Vital Signs: Oxygen Delivery Method Room Air Telemetry Rhythm: Sinus Rhythm Height: 1.78 m Weight: 139.6 kg Body Mass Index: 44.1 - Constitutional Present: no acute distress - Routine HEENT Exam Head: Present: normocephalic, atraumatic - Routine Neck Exam Present: supple, full ROM - Routine Chest/Breast/Axilla Exam Chest wall: Absent: tenderness - Routine Respiratory Exam Present: CTA bilaterally. Absent: wheezes, crackles - Routine Cardiovascular Exam Present: RRR, no murmur Sepsis Assessment - Evaluation Sepsis screening result: No Definite Risk IRU A/P (1) Rhabdomyolysis Current visit: No Status: Acute Medical and surgical to manage as neededl (2) Hypokalemia Current visit: Yes Status: Acute Managed by Medical (3) Myopathy Current visit: Yes Status: Acute PT and OT per careplan. Will strongly encourage pt about rhabdo and neeed to excersice uder spervision. DVT Prophylaxis: SCD's Resuscitation Status: Full Code - Course Hospital Course: Marito Lee MD: - Interventions to Obtain Goals PT Treatment Plan: Balance/Proprioception, Functional Activities, Gait Training , Patient/Family Education, Therapeutic Exercise OT Treatment Plan: ADL (Basic Care), Balance Training, IADL, Pt./Family Education, Ther. Exercise for ADL
--- NOTE | 2017-05-19 11:45 | IRU Progress Note ---
- Subjective/Serverity of Illness Mr. Amato is a pleasant 61-year-old white male. He is an senior accountant. He recently made a transition in his working life. He is admitted after having fallen a couple of times. He probably slid down the stairs on his back for the most recent episode. He states that he was immobile at that point for about 20 minutes. That is, he was not able to get up. He was evaluated and noted to have significant rhabdomyolysis with quite high CPK values. His creatinine was 1.9 and now it is down to 1.7. He has a long history of back pain but has never had surgery on his lumbar spine. Does have history of C4-5 neck injury which he sustained 40 years ago after playing rugby. Had surgery at that time on his neck but on his low back. He does have history of low back pain and does use various interventions. However has not releasing physical therapy nor a chiropractor nor a physician about it he states. He is highly motivated to go home he states. He believes he is getting stronger. He does have significant muscle weakness and debility related to his discomfort. Exam Vital Signs: Temperature 98 F 05/18/17 19:52 Pulse Rate 82 05/18/17 19:52 Respiratory Rate 20 05/18/17 19:52 Blood Pressure 158/83 H 05/18/17 19:52 Pulse Oximetry 100 05/18/17 19:52 Oxygen Delivery Method Room Air Height: 1.78 m Weight: 139.6 kg Body Mass Index: 44.1 - Constitutional Present: mild distress, morbidly obese, cooperative - Routine Neck Exam Present: supple - Routine Respiratory Exam Present: CTA bilaterally - Routine Cardiovascular Exam Present: RRR, no murmur - Routine Abdominal Exam Present: soft, non distended, non tender - Routine Extremities Exam Present: no edema - Routine Back/Spine/Pelvis Exam Back/Spine: Present: muscle spasm - Routine Neurological Exam Present: alert, oriented X3 - Routine Psychiatric Exam Present: normal affect, normal thought process, cooperative, good insight Sepsis Assessment - Evaluation Sepsis screening result: No Definite Risk IRU A/P (1) Lumbar paraspinal muscle spasm Current visit: No Status: Acute Continues to experience significant muscle spasm and discomfort in the lower back. However this is improving and he is cooperating with therapies. He seems to be highly motivated to return home. (2) Myopathy Current visit: Yes Status: Acute There is evidence of myopathy changes in view of muscle weakness secondary to disuse. Continues to improve however he believes he is stronger. He is walking with a walker. (3) Morbid obesity Current visit: Yes Status: Acute Per medical team. Recommend limitation of total caloric intake. DVT Prophylaxis: SCD's Resuscitation Status: Full Code - Course Hospital Course: Marito Lee MD: 05/19/17 11:47 Improving with regard to transfers and ambulation. Walking with walker Low back pain continues to be one barrier to progress Muscle weakness continues to be an issue likely secondary to disuse. His creatinine has improved from 1.9 down to 1.6. - Interventions to Obtain Goals PT Treatment Plan: Balance/Proprioception, Functional Activities, Gait Training , Patient/Family Education, Therapeutic Exercise OT Treatment Plan: ADL (Basic Care), Balance Training, IADL, Pt./Family Education, Ther. Exercise for ADL
--- NOTE | 2017-05-19 12:59 | IRU Team Meeting ---
IRU Team Meeting - Nursing Vital Signs: Vital Signs - 24 hr 05/18/17 16:00 05/18/17 19:52 Temperature 97.8 F 98 F Pulse Rate 86 82 Respiratory Rate 18 20 Blood Pressure 152/94 H 158/83 H Pulse Oximetry 94 100 Current Medications: Acetaminophen (Tylenol) 325 - 650 mg PO Q4H PRN PRN Reason: Fever /Headache /Pain Last Admin: 05/13/17 10:18 Dose: 650 mg Acetaminophen/Hydrocodone Bitart ([place] 7.5/325) 1 tab PO Q4H PRN PRN Reason: Pain Last Admin: 05/19/17 08:51 Dose: 1 tab Amlodipine Besylate (Norvasc) 10 mg PO DAILY [facility] Last Admin: 05/19/17 08:47 Dose: 10 mg Aspirin (Ecotrin) 81 mg PO DAILY [facility] Last Admin: 05/19/17 08:47 Dose: 81 mg Bisacodyl (Dulcolax) 10 mg RECTALLY DAILY PRN PRN Reason: Constipation Cyclobenzaprine HCl (Flexeril) 10 mg PO TID [facility] Last Admin: 05/19/17 08:47 Dose: 10 mg Losartan Potassium (Cozaar) 50 mg PO DAILY [facility] Last Admin: 05/13/17 10:19 Dose: 50 mg Magnesium Hydroxide (Mom) 30 ml PO DAILY PRN PRN Reason: Constipation Multivitamins (Theragran) 1 tab PO DAILY [facility] Last Admin: 05/19/17 08:47 Dose: 1 tab Neomycin/Polymyxin/Bacitracin (Neosporin) 1 applic TP DAILY PRN Last Admin: 05/12/17 17:50 Dose: 1 applic Pharmacy Consult () 1 each XX ONE TIME PRN PRN Reason: PRN orders Polyethylene Glycol (Miralax) 17 gm PO DAILY PRN PRN Reason: Additional dose as needed Last Admin: 05/17/17 08:40 Dose: 17 gm Saliva Substitute (Biotene Dry Mouth Oral Rinse) 15 ml MM DAILY PRN PRN Reason: Dry mouth Last Admin: 05/16/17 20:32 Dose: 15 ml Comments: Admitted after a severe fall, back pain and rhabdomyolysis. CK down and creatinine improved although still up at 1.6. Uncertain what baseline was. Hgb 11.8. Uses CPAP all night every night. Urinary urgency noted. Long hx of similar problems and he attributes this to his remote C-spine injury. Has small AFO trauma, scabbed. - Physical Therapy Supine to Sit Bed Mobility Ability: Modified Independent Sit to Supine Bed Mobility Ability: Modified Independent Comments: Difficulty with stairs and exercises. Has met other goals. Has a walker and scooter at home. - Occupational Therapy Bathing Ability: Contact Guard Assistance Upper Body Dressing Ability: Modified Independent Lower Body Dressing Ability: Modified Independent - Care Plan Anticipated Length of Stay: 5 Anticipated DC Destination: Home, Self Care, Home Health Service Interventions/Goals: Will need bedside commode due to urgency. Anticipate home toward the end of the week. Will need to work on stairs, strengthening.
--- NOTE | 2017-05-19 16:22 | Progress Note ---
<Natalee Sykes V - Last Filed: 05/19/17 16:06> Subjective: Shane is seen today in follow up. He is doing well and ready to go home. He has no complaints of pain, shortness of breath or GI complaints. BP elevated at times 150's. appetite is good. No difficulty with urination. [employer] continues to be elevated 1.7. Objective Vital signs: Temperature 98 F 05/18/17 19:52 Pulse Rate 82 05/18/17 19:52 Respiratory Rate 20 05/18/17 19:52 Blood Pressure 158/83 H 05/18/17 19:52 Pulse Oximetry 100 05/18/17 19:52 Oxygen Delivery Method Room Air Body Mass Index: 44.1 - Constitutional Present: well nourished, well developed - Routine HEENT Exam Eye: Present: EOMI, PERRL ENT: Present: mucous membranes moist, dentition normal - Routine Respiratory Exam Present: CTA bilaterally. Absent: wheezes - Routine Cardiovascular Exam Present: RRR, S1, S2. Absent: murmur - Routine Abdominal Exam Present: soft, normoactive bowel sounds, non distended. Absent: tenderness - Routine Extremities Exam Present: normal capillary refill - Routine Back/Spine/Pelvis Exam Back/Spine: Present: full ROM - Routine Skin Exam Present: intact, dry, warm - Routine Neurological Exam Present: alert, oriented X3, CN II-XII intact - Routine Lymphatic Exam Lymphatic: Absent: adenopathy - Routine Psychiatric Exam Present: normal affect, normal thought process Results - Labs CBC & Chem 7: 05/17/17 11:14 05/17/17 11:14 Assessment and Plan (1) Rhabdomyolysis Current visit: No Status: Acute (2) Hypokalemia Current visit: Yes Status: Acute (3) Myopathy Current visit: Yes Status: Acute Assessment and Plan: 05/19/17 Overall, Shane is doing well with therapy. Blood pressure has been borderline high at times. His Cozaar continues to be on hold given his elevated renal function. Will resume home Bumex 1 mg daily as this will help control blood pressure Will recheck tomorrow morning, hopeful to resume Cozaar. Will also recheck CPK and it has continued to trend down. Continue to work with PT and OT for ongoing strengthening Sepsis Assessment - Evaluation Sepsis screening result: No Definite Risk Hospital Course Summary Disclaimer: The visit summary below is not to be considered part of the above Progress Note. Hospital Course: 05/13/17 Agree with admission to inpatient rehabilitation unit for ongoing strenghtening and improved function given weakness with recent falls. Renal function does continue to improve, however, is not back at baseline. Actions[employer] Developer today is 2.5 (Baseline appears to be 1.0-1.5). Will continue to hold Cozaar at this time as this can be nephrotoxic Blood pressures are elevated. Will increase Norvasc to 10 mg daily for better control Have asked nursing staff to bladder retraining with Walsh catheter and will plan to discontinue Walsh tomorrow morning. Potassium today is slightly decreased to 3.5. will give a one time order of 40 MEQ today. Will recheck BMP and CK (was 13,067 on 05/12) tomorrow morning. Encourage continued work with PT and OT for strengthening under the care of Dr Lee At time of discharge, patient's medical care will return to his primary care provider, Dr. Brown in [place] 05/15/17 14:51 Medically, patient is doing well. His creatinine has decreased to 2.2. We'll continue to hold Cozaar. Hold Bumex. Recheck BMP in am. HTN: BP has been elevated with diastolic >100 mm Hg at times - He's on max dose of Norvasc; Bumex 1 mg daily. D/W Dr. Elam - with DEONDRE, observe for now - may initiate another agent in the future. Rhabdo: CK continues to trend down. He has been able to void since the Walsh catheter was discontinued. DC plans: discussed with ZOE Cottrell. 05/19/17 Overall, Don is doing well with therapy. Blood pressure has been borderline high at times. His Cozaar continues to be on hold given his elevated renal function. Will resume home Bumex 1 mg daily as this will help control blood pressure Will recheck tomorrow morning, hopeful to resume Cozaar. Will also recheck CPK and it has continued to trend down. Continue to work with PT and OT for ongoing strengthening <Tigist De La Garza - Last Filed: 05/19/17 20:07> Objective Vital signs: Temperature 97.8 F 05/19/17 16:00 Pulse Rate 84 05/19/17 16:00 Respiratory Rate 16 05/19/17 16:00 Blood Pressure 152/92 H 05/19/17 16:00 Pulse Oximetry 95 05/19/17 16:00 Oxygen Delivery Method Room Air Results - Labs CBC & Chem 7: 05/17/17 11:14 05/17/17 11:14 Assessment and Plan (1) Rhabdomyolysis Current visit: No Status: Acute (2) Hypokalemia Current visit: Yes Status: Acute (3) Myopathy Current visit: Yes Status: Acute Assessment and Plan: 05/19/2017-I reviewed this chart, the patient history, and the CONFERENCE SERVICES COORDINATOR's/PA's documented findings as above. We discussed and formulated the assessment and plan as above with the additions below. I evaluated and examined the patient independently. The patient was seen this evening accompanied by his . He initially states he doesn't understand why he needs to take the Bumex and why he is taking Norvasc instead of losartan. I discussed with him that with his rhabdomyolysis he received a lot of IV fluids to help improve his kidney function. As a result , he developed edema. Blood pressure has been elevated likely secondary to edema and being off of losartan. I discussed with him that losartan was discontinued at this time because of his acute kidney injury. He is on Norvasc for blood pressure at this time since it does not affect kidney function. He states he does not like taking the Bumex because it causes frequent urination and he has difficulty with incontinence and frequency anyway. We discussed optimization of timing of Bumex and he would like to take it at noon time. I will make a change in the orders to restart Bumex at noon tomorrow. He denies having any shortness of breath. He denies any current pain. He is eating and drinking well. On exam he is alert and oriented 3 and in no acute distress. Chest is clear to auscultation. Cardiac vascular reveals a regular rate and rhythm. Abdomen is soft and nontender. Extremities reveal +1 edema in the right lower extremity and 2+ edema in the left lower extremity. Patient states that the left leg is chronically more swollen than the right for at least the past couple of years. 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 Continue Norvasc for blood pressure. Bumex once daily at noon Daily weights Continue CPAP - Time spent with patient 25 - 35 minutes Hospital Course Summary Disclaimer: The visit summary below is not to be considered part of the above Progress Note.
[2017-05-19] MEDS ORDERED: BUMETANIDE 1 MG TABLET PO SCH (16:30)
[2017-05-20] MEDS: MULTI-VITAMIN PLAIN TABLET PO SCH (09:02)
[2017-05-20] MEDS: HYDROCODONE/APAP 7.5 MG/325 MG TABLET PO PRN ×3 (09:02→21:17)
[2017-05-20] MEDS: AMLODIPINE 10 MG TABLET PO SCH (09:02)
[2017-05-20] MEDS: ASPIRIN *EC* 81 MG TABLET PO SCH (09:02)
[2017-05-20] MEDS: CYCLOBENZAPRINE 10 MG TABLET PO SCH ×3 (09:02→21:17)
--- NOTE | 2017-05-20 09:58 | IRU Progress Note ---
- Subjective/Serverity of Illness Don states that he is improving with regard to his strength. Has a history of significant cervical spine injury about 40 years ago which no doubt plays a significant role in his weakness. Back pain is improved as well. We discussed his urinary frequency and urgency and some length. He states that he has not seen a urologist but does follow with his family doctor with regard to his prostate. Does not have symptoms of urinary tract infection. He states that the urgency and frequency is improving. He indicates that he has had this problem ever since his cervical spine injury. I discussed with him that at some point it might be good to have his family doctor recheck him in this regard and see if he needs to see a urologist or not. Question is whether he is retaining. Had a Walsh catheter for about 6 days while on acute apparently. Exam Vital Signs: Temperature 98.4 F 05/20/17 09:43 Pulse Rate 87 05/20/17 09:43 Respiratory Rate 16 05/20/17 09:43 Blood Pressure 149/86 H 05/20/17 09:43 Pulse Oximetry 95 05/20/17 09:43 Oxygen Delivery Method Room Air Height: 1.78 m Weight: 127.8 kg Body Mass Index: 44.1 - Constitutional Present: no acute distress Comments: Continues to be motivated to improve. He would like to go home at a reasonable time. We discussed staying another several days because he is making improvement and he agrees to this. - Routine HEENT Exam Head: Present: normocephalic - Routine Neck Exam Present: supple - Routine Cardiovascular Exam Present: RRR - Routine Abdominal Exam Present: soft, non tender - Routine Extremities Exam Present: no edema - Routine Skin Exam Present: intact, dry Results IRU - Labs Labs: I reviewed the patient's lab. Sepsis Assessment - Evaluation Sepsis screening result: No Definite Risk IRU A/P (1) Lumbar paraspinal muscle spasm Current visit: No Status: Acute His back pain is improved. He is cooperating with therapies and improving. (2) Myopathy Current visit: Yes Status: Acute He is improving with regard to his muscle strength and ambulatory ability as well as transfers. (3) Morbid obesity Current visit: Yes Status: Acute DVT Prophylaxis: SCD's Resuscitation Status: Full Code - Course Hospital Course: Marito Lee MD: 05/19/17 11:47 Improving with regard to transfers and ambulation. Walking with walker Low back pain continues to be one barrier to progress Muscle weakness continues to be an issue likely secondary to disuse. His creatinine has improved from 1.9 down to 1.6. - Interventions to Obtain Goals PT Treatment Plan: Balance/Proprioception, Functional Activities, Gait Training , Patient/Family Education, Therapeutic Exercise OT Treatment Plan: ADL (Basic Care), Balance Training, IADL, Pt./Family Education, Ther. Exercise for ADL
--- NOTE | 2017-05-20 12:00 | Progress Note ---
Subjective: Shane is seen today in follow up for his rhabo. He is seen in the dining room, having just finished all his breakfast. He reports that he is doing well. He states that he slept very well last night and denies any complaints including no chest pain, shortness of breath, abdominal pain, nausea, vomiting or dysuria. He repeatedly states that he does not like taking the Bumex as it causes him to urinate too frequently which is problematic for him as he struggles with incontinence anyway. He feels like his edema is significantly improved and requests not to take the bumex any longer. Recent lab values were review with him including improvement in his SCr at 1.5 and CK at 249. Blood pressure remains elevated at 152/81. He is eager for discharge on May 23 and denies any current concerns regarding the discharge process. His appetite is good and bowels are moving. On exam, he is alert and orientated x 3. Cardiac exam reveals regular rate and rhythm and lungs are clear to auscultation. Abdomen is soft, distended with active bowel sounds. 1+ edema noted to lower extremities, L>R. Objective Vital signs: Temperature 98.4 F 05/20/17 09:43 Pulse Rate 87 05/20/17 09:43 Respiratory Rate 16 05/20/17 09:43 Blood Pressure 149/86 H 05/20/17 09:43 Pulse Oximetry 95 05/20/17 09:43 Oxygen Delivery Method Room Air Body Mass Index: 44.1 - Constitutional Present: no acute distress, well nourished, well developed, cooperative - Routine HEENT Exam Head: Present: normocephalic, atraumatic Eye: Present: EOMI ENT: Present: mucous membranes moist - Routine Respiratory Exam Present: CTA bilaterally. Absent: rhonchi, stridor, wheezes - Routine Cardiovascular Exam Present: RRR, S1, S2 - Routine Abdominal Exam Present: soft, normoactive bowel sounds, non tender, distended - Routine Extremities Exam Present: edema, non tender, pulses intact - Routine Back/Spine/Pelvis Exam Back/Spine: Present: full ROM - Routine Musculoskeletal Exam Musculoskeletal: Present: moving extremities well - Routine Skin Exam Present: intact, dry, warm. Absent: jaundice - Routine Neurological Exam Present: alert, oriented X3, moving all extremities, normal speech - Routine Psychiatric Exam Present: normal affect, cooperative Results - Labs CBC & Chem 7: 05/17/17 11:14 05/20/17 05:29 Assessment and Plan (1) Rhabdomyolysis Current visit: No Status: Acute (2) Hypokalemia Current visit: Yes Status: Acute (3) Myopathy Current visit: Yes Status: Acute Assessment and Plan: Shane is seen in the dining room this morning and appears in good spirits. He continues to question why he needs to take the Bumex as he feels like his edema has resolved. He states he does not like taking the Bumex because it causes frequent urination and he has difficulty with incontinence and frequency anyway. He also feels that the bumex does not help with his blood pressure and asks if his kidney function would support him resuming his Losartan. He is currently on Norvasc for blood pressure at this time since it does not affect kidney function. BMP results from today discussed including his SCr which continues to trend down at 1.5. Dr. De La Garza discussed optimization of timing of Bumex by taking it at noon time with Shane yesterday, but he would rather it just be discontinued. He denies having any shortness of breath. He denies any current pain. He is eating and drinking well. On exam he is alert and oriented 3 and in no acute distress. Chest is clear to auscultation. Cardiac vascular reveals a regular rate and rhythm. Abdomen is soft and nontender. Extremities reveal +1 edema in the right lower extremity and 2+ edema in the left lower extremity. Patient states that the left leg is chronically more swollen than the right for at least the past couple of years. As he continues to make slow gains, will continue with plan of care. Continue to encourage therapies per Dr. Bridges. Labs today continue to show improvement with SCr trending down at 1.5 and CPK at 249. Will recheck BMP in AM to continue to monitor blood counts and electrolytes. Continue to hold losartan for now and continue Norvasc for blood pressure. Monitor blood pressure closely. No need to continue to recheck CK as it continues to trend down. Continue to monitor closely for fluid overload with daily weights. Bumex once daily at noon. Patient would like Bumex discontinued as soon as possible but is willing to keep taking it if needed. - Time spent with patient greater than 35 minutes Coordination of Care: >50% of visit spent providing counseling/coordination of care Sepsis Assessment - Evaluation Sepsis screening result: No Definite Risk Hospital Course Summary Disclaimer: The visit summary below is not to be considered part of the above Progress Note. Hospital Course: 05/13/17 Agree with admission to inpatient rehabilitation unit for ongoing strenghtening and improved function given weakness with recent falls. Renal function does continue to improve, however, is not back at baseline. [employer] today is 2.5 (Baseline appears to be 1.0-1.5). Will continue to hold Cozaar at this time as this can be nephrotoxic Blood pressures are elevated. Will increase Norvasc to 10 mg daily for better control Have asked nursing staff to bladder retraining with Walsh catheter and will plan to discontinue Walsh tomorrow morning. Potassium today is slightly decreased to 3.5. will give a one time order of 40 MEQ today. Will recheck BMP and CK (was 13,067 on 05/12) tomorrow morning. Encourage continued work with PT and OT for strengthening under the care of Dr Lee At time of discharge, patient's medical care will return to his primary care provider, Dr. Brown in [place] 05/15/17 14:51 Medically, patient is doing well. His creatinine has decreased to 2.2. We'll continue to hold Cozaar. Hold Bumex. Recheck BMP in am. HTN: BP has been elevated with diastolic >100 mm Hg at times - He's on max dose of Norvasc; Bumex 1 mg daily. D/W Dr. Elam - with DEONDRE, observe for now - may initiate another agent in the future. Rhabdo: CK continues to trend down. He has been able to void since the Walsh catheter was discontinued. DC plans: discussed with ZOE Cottrell. 05/19/17 Overall, Shane is doing well with therapy. Blood pressure has been borderline high at times. His Cozaar continues to be on hold given his elevated renal function. Will resume home Bumex 1 mg daily as this will help control blood pressure Will recheck tomorrow morning, hopeful to resume Cozaar. Will also recheck CPK and it has continued to trend down. Continue to work with PT and OT for ongoing strengthening 05/20/17 12:26 Shane is seen in the dining room this morning and appears in good spirits. He continues to question why he needs to take the Bumex as he feels like his edema has resolved. He states he does not like taking the Bumex because it causes frequent urination and he has difficulty with incontinence and frequency anyway. He also feels that the bumex does not help with his blood pressure and asks if his kidney function would support him resuming his Losartan. He is currently on Norvasc for blood pressure at this time since it does not affect kidney function. BMP results from today discussed including his SCr which continues to trend down at 1.5. Dr. De La Garza discussed optimization of timing of Bumex by taking it at noon time with Don yesterday, but he would rather it just be discontinued. He denies having any shortness of breath. He denies any current pain. He is eating and drinking well. On exam he is alert and oriented 3 and in no acute distress. Chest is clear to auscultation. Cardiac vascular reveals a regular rate and rhythm. Abdomen is soft and nontender. Extremities reveal +1 edema in the right lower extremity and 2+ edema in the left lower extremity. Patient states that the left leg is chronically more swollen than the right for at least the past couple of years. As he continues to make slow gains, will continue with plan of care. Continue to encourage therapies per Dr. Bridges. Labs today continue to show improvement with SCr trending down at 1.5 and CPK at 249. Will recheck BMP in AM to continue to monitor blood counts and electrolytes. Continue to hold losartan for now and continue Norvasc for blood pressure. Monitor blood pressure closely. No need to continue to recheck CK as it continues to trend down. Continue to monitor closely for fluid overload with daily weights. Bumex once daily at noon. Patient would like Bumex discontinued as soon as possible but is willing to keep taking it if needed.
[2017-05-20] MEDS: BUMETANIDE 1 MG TABLET PO SCH (12:52)
[2017-05-21] MEDS: AMLODIPINE 10 MG TABLET PO SCH (08:46)
[2017-05-21] MEDS: CYCLOBENZAPRINE 10 MG TABLET PO SCH ×3 (08:46→20:55)
[2017-05-21] MEDS: MULTI-VITAMIN PLAIN TABLET PO SCH (08:46)
[2017-05-21] MEDS: BUMETANIDE 1 MG TABLET PO SCH (08:46)
[2017-05-21] MEDS: ASPIRIN *EC* 81 MG TABLET PO SCH (08:46)
[2017-05-21] MEDS: HYDROCODONE/APAP 7.5 MG/325 MG TABLET PO PRN ×3 (08:46→20:55)
--- NOTE | 2017-05-21 08:49 | IRU Progress Note ---
- Subjective/Serverity of Illness Don is anxious to get home. However he is working diligently and feels as though he is getting stronger. His ambulatory distance is improving and his strength and transfers is better. He does have acute kidney injury. Denies any nausea or vomiting. His appetite remains good. His blood pressure remains a bit elevated. He does have episodes of urinary urgency which apparently are lifelong (at least since the cervical spine injury). Exam Vital Signs: Temperature 98 F 05/21/17 07:44 Pulse Rate 88 05/21/17 07:44 Respiratory Rate 18 05/21/17 07:44 Blood Pressure 159/95 H 05/21/17 07:44 Pulse Oximetry 95 05/21/17 07:44 Oxygen Delivery Method Room Air Height: 1.78 m Weight: 127.8 kg Body Mass Index: 44.1 - Constitutional Present: no acute distress - Routine HEENT Exam Head: Present: normocephalic, atraumatic Eye: Absent: scleral injection - Routine Neck Exam Present: supple - Routine Respiratory Exam Present: CTA bilaterally. Absent: accessory muscle use - Routine Cardiovascular Exam Present: RRR, S1, S2, no murmur - Routine Extremities Exam Present: no edema - Routine Neurological Exam Bilat foot drop with walking impairs his ambulatory ability. - Routine Psychiatric Exam Present: normal affect, normal thought process, good insight Results IRU - Labs Labs: Creatinine continues to improve, now down to 1.4 Sepsis Assessment - Evaluation Sepsis screening result: No Definite Risk IRU A/P (1) Lumbar paraspinal muscle spasm Current visit: No Status: Acute Daughter reports that his back pain is better. It does hurt at times when he has a spasm after he has transferred or has been walking for. Overall there is improvement however. (2) Myopathy Current visit: Yes Status: Acute Does have myopathy which is improving. His strength is improving in his transfer ability and ambulatory distance is improving. (3) Morbid obesity Current visit: Yes Status: Acute Encouraged to limit total caloric intake. (4) Acute kidney injury Current visit: No Status: Acute Patient experienced acute kidney injury at the time of his rhabdomyolysis. His creatinine has gradually improved and is now down to 1.4. This has impacted medication choice and thankfully is improving. DVT Prophylaxis: SCD's Resuscitation Status: Full Code - Course Hospital Course: Marito Lee MD: 05/19/17 11:47 Improving with regard to transfers and ambulation. Walking with walker Low back pain continues to be one barrier to progress Muscle weakness continues to be an issue likely secondary to disuse. His creatinine has improved from 1.9 down to 1.6. - Interventions to Obtain Goals PT Treatment Plan: Balance/Proprioception, Functional Activities, Gait Training , Patient/Family Education, Therapeutic Exercise OT Treatment Plan: ADL (Basic Care), Balance Training, IADL, Pt./Family Education, Ther. Exercise for ADL
[2017-05-22] MEDS: AMLODIPINE 10 MG TABLET PO SCH (08:11)
[2017-05-22] MEDS: ASPIRIN *EC* 81 MG TABLET PO SCH (08:11)
[2017-05-22] MEDS: HYDROCODONE/APAP 7.5 MG/325 MG TABLET PO PRN ×3 (08:11→21:19)
[2017-05-22] MEDS: MULTI-VITAMIN PLAIN TABLET PO SCH (08:11)
[2017-05-22] MEDS: CYCLOBENZAPRINE 10 MG TABLET PO SCH ×3 (08:11→21:19)
[2017-05-22] MEDS: BUMETANIDE 1 MG TABLET PO SCH (08:11)
--- NOTE | 2017-05-22 11:17 | IRU Progress Note ---
- Subjective/Serverity of Illness Don continues to improve. He is particularly improving with the use of AFOs. He would like a prescription for custom made bilateral AFOs and this will be provided. His primary concern is the use of Bumex. He would strongly prefer not to take it and in fact has refused apparently. I have discussed the case with Natalee, with the hospitalist service. It is being used at this time for blood pressure control. He does have a problem with urinary urgency and frequency in view of his previous cervical spine injury. For the time being we will stop the Bumex and I will defer to the hospitalist as to what medications they want to leave them on. He was on losartan but that was held due to his creatinine elevation. Exam Vital Signs: Temperature 98.4 F 05/22/17 07:48 Pulse Rate 90 05/22/17 07:48 Respiratory Rate 16 05/22/17 07:48 Blood Pressure 141/84 H 05/22/17 07:48 Pulse Oximetry 96 05/22/17 07:48 Oxygen Delivery Method Room Air Height: 1.78 m Weight: 127.8 kg Body Mass Index: 44.1 - Constitutional Present: no acute distress - Routine HEENT Exam Head: Present: normocephalic Eye: Present: EOMI ENT: Present: mucous membranes moist - Routine Neck Exam Present: supple - Routine Respiratory Exam Present: CTA bilaterally - Routine Cardiovascular Exam Present: RRR, S1, S2, no murmur - Routine Abdominal Exam Present: non distended - Routine Extremities Exam Present: no edema - Routine Neurological Exam Patient does have bilateral foot drop. This is improved with use of the AFO devices. A prescription will be provided. Sepsis Assessment - Evaluation Sepsis screening result: No Definite Risk IRU A/P (1) Lumbar paraspinal muscle spasm Current visit: No Status: Resolved Back pain and spasm has improved and is minimally present. 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 He is improving. His strength is improving. Anticipate dismissal tomorrow if patient is stable and clinically improved. (3) Morbid obesity Current visit: Yes Status: Acute (4) Acute kidney injury Current visit: No Status: Acute (5) Benign essential hypertension Current visit: Yes Status: Chronic Patient was on losartan home. This was held due to the rhabdomyolysis and elevated creatinine. His numbers are improved. He has been treated with Bumex for blood pressure. I discussed the case with Natalee, with the hospitalist service and for now we will hold the Bumex due to the patient's desire not to take it. She will review the medications prior to dismissal. His blood pressure seems to be fairly well controlled at present. (6) Foot drop, bilateral Current visit: Yes Status: Chronic Patient does have chronic bilateral foot drop. Prescription for bilateral AFO devices is provided to the patient today. His ambulatory ability has been significantly improved with use of these devices. DVT Prophylaxis: SCD's Resuscitation Status: Full Code - Course Hospital Course: Marito Lee MD: 05/19/17 11:47 Improving with regard to transfers and ambulation. Walking with walker Low back pain continues to be one barrier to progress Muscle weakness continues to be an issue likely secondary to disuse. His creatinine has improved from 1.9 down to 1.6. - Interventions to Obtain Goals PT Treatment Plan: Balance/Proprioception, Functional Activities, Gait Training , Patient/Family Education, Therapeutic Exercise OT Treatment Plan: ADL (Basic Care), Balance Training, IADL, Pt./Family Education, Ther. Exercise for ADL
--- NOTE | 2017-05-22 17:05 | Progress Note ---
Subjective: Shane is seen today in follow-up. He is resting in his room this afternoon. States overall he is doing well. However, he got in a hurry today and did have a near fall while working with PT. His plan for discharge home tomorrow. No pain , shortness of breath or GI complaints. We reviewed home medications. Objective Vital signs: Temperature 97.9 F 05/22/17 16:05 Pulse Rate 93 05/22/17 16:05 Respiratory Rate 16 05/22/17 16:05 Blood Pressure 160/80 H 05/22/17 16:05 Pulse Oximetry 97 05/22/17 16:05 Oxygen Delivery Method Room Air Body Mass Index: 44.1 - Constitutional Present: well nourished, well developed - Routine HEENT Exam Eye: Present: EOMI ENT: Present: mucous membranes moist, dentition normal - Routine Respiratory Exam Present: CTA bilaterally. Absent: wheezes - Routine Cardiovascular Exam Present: RRR. Absent: murmur - Routine Abdominal Exam Present: soft, normoactive bowel sounds, non distended. Absent: tenderness - Routine Extremities Exam Present: normal capillary refill - Routine Skin Exam Present: dry, warm - Routine Neurological Exam Present: alert, oriented X3, CN II-XII intact - Routine Lymphatic Exam Lymphatic: Absent: adenopathy - Routine Psychiatric Exam Present: normal affect Results - Labs CBC & Chem 7: 05/17/17 11:14 05/21/17 04:22 Assessment and Plan (1) Rhabdomyolysis Current visit: No Status: Acute (2) Hypokalemia Current visit: Yes Status: Acute (3) Myopathy Current visit: Yes Status: Acute Assessment and Plan: 05/22 Overall Shane is medically stable. Will plan to resume him home Losartan. Would recommend he follow with PCP in 1 week and have a BMP at that time. Sepsis Assessment - Evaluation Sepsis screening result: No Definite Risk Hospital Course Summary Disclaimer: The visit summary below is not to be considered part of the above Progress Note. Hospital Course: 05/13/17 Agree with admission to inpatient rehabilitation unit for ongoing strenghtening and improved function given weakness with recent falls. Renal function does continue to improve, however, is not back at baseline. Tube Station Attendant today is 2.5 (Baseline appears to be 1.0-1.5). Will continue to hold Cozaar at this time as this can be nephrotoxic Blood pressures are elevated. Will increase Norvasc to 10 mg daily for better control Have asked nursing staff to bladder retraining with Walsh catheter and will plan to discontinue Walsh tomorrow morning. Potassium today is slightly decreased to 3.5. will give a one time order of 40 MEQ today. Will recheck BMP and CK (was 13,067 on 05/12) tomorrow morning. Encourage continued work with PT and OT for strengthening under the care of Dr Lee At time of discharge, patient's medical care will return to his primary care provider, Dr. Brown in [place] 05/15/17 14:51 Medically, patient is doing well. His creatinine has decreased to 2.2. We'll continue to hold Cozaar. Hold Bumex. Recheck BMP in am. HTN: BP has been elevated with diastolic >100 mm Hg at times - He's on max dose of Norvasc; Bumex 1 mg daily. D/W Dr. Elam - with DEONDRE, observe for now - may initiate another agent in the future. Rhabdo: CK continues to trend down. He has been able to void since the Walsh catheter was discontinued. DC plans: discussed with ZOE Cottrell. 05/19/17 Overall, Shane is doing well with therapy. Blood pressure has been borderline high at times. His Cozaar continues to be on hold given his elevated renal function. Will resume home Bumex 1 mg daily as this will help control blood pressure Will recheck tomorrow morning, hopeful to resume Cozaar. Will also recheck CPK and it has continued to trend down. Continue to work with PT and OT for ongoing strengthening 05/20/17 12:26 Shane is seen in the dining room this morning and appears in good spirits. He continues to question why he needs to take the Bumex as he feels like his edema has resolved. He states he does not like taking the Bumex because it causes frequent urination and he has difficulty with incontinence and frequency anyway. He also feels that the bumex does not help with his blood pressure and asks if his kidney function would support him resuming his Losartan. He is currently on Norvasc for blood pressure at this time since it does not affect kidney function. BMP results from today discussed including his SCr which continues to trend down at 1.5. Dr. De La Garza discussed optimization of timing of Bumex by taking it at noon time with Don yesterday, but he would rather it just be discontinued. He denies having any shortness of breath. He denies any current pain. He is eating and drinking well. On exam he is alert and oriented 3 and in no acute distress. Chest is clear to auscultation. Cardiac vascular reveals a regular rate and rhythm. Abdomen is soft and nontender. Extremities reveal +1 edema in the right lower extremity and 2+ edema in the left lower extremity. Patient states that the left leg is chronically more swollen than the right for at least the past couple of years. As he continues to make slow gains, will continue with plan of care. Continue to encourage therapies per Dr. Bridges. Labs today continue to show improvement with SCr trending down at 1.5 and CPK at 249. Will recheck BMP in AM to continue to monitor blood counts and electrolytes. Continue to hold losartan for now and continue Norvasc for blood pressure. Monitor blood pressure closely. No need to continue to recheck CK as it continues to trend down. Continue to monitor closely for fluid overload with daily weights. Bumex once daily at noon. Patient would like Bumex discontinued as soon as possible but is willing to keep taking it if needed.
--- NOTE | 2017-05-22 17:13 | Discharge Instructions ---
Discharge Plan - Med Rec/Dispo Referrals/Follow Up: SUNITA MEANS [Family Provider] - (Dr. Kamaljit Means on 06/03/17 at 1:00 pm for Hosp. follow-up. [facility]. Please have a BMP lab at that time. [address] [facility] [place] [address]) Additional Instructions: Please have a BMP lab at [facility] with Dr Gonzalez. Prescriptions: New Acetaminophen [Tylenol] 325 - 650 mg PO Q4H PRN tablet PRN Reason: Fever /Headache /Pain Losartan [Cozaar] 50 mg PO DAILY tablet Saliva Substitute Mouthwash [Biotene Dry Mouth Oral Rinse] 15 ml MM DAILY PRN bottle PRN Reason: Dry Mouth Bisacodyl Supp [Dulcolax] 10 mg RECTALLY DAILY PRN supp PRN Reason: Constipation PEG 3350 17gm PACKET [Miralax] 17 gm PO DAILY PRN packet PRN Reason: Additional dose as needed Continue Aspirin [[place] Aspirin] 81 mg PO DAILY Multi-Vitamin Plain [Theragran] 1 tab PO DAILY Senna + Docusate [Senna Plus Tablet] 2 tab PO BID tablet Discontinued Amlodipine [Norvasc] 5 mg PO DAILY tablet Bumetanide Tab [Bumex] 1 mg PO DAILY #20 tablet No Action Acetaminophen [Tylenol] 325 - 650 mg PO Q4H PRN tablet PRN Reason: Fever /Headache /Pain Cyclobenzaprine [Flexeril] 10 mg PO TID tablet Hydrocodone/APAP 7.5/325 [[place] 7.5/325] 1 tab PO Q4H PRN tablet PRN Reason: Pain PEG 3350 17gm PACKET [Miralax] 17 gm PO DAILY packet Bisacodyl Supp [Dulcolax] 10 mg RECTALLY DAILY PRN supp PRN Reason: Constipation Milk of Magnesia [Mom] 30 ml PO DAILY PRN udc PRN Reason: Constipation - Disposition Discharged Home, Self-Care
[2017-05-23] MEDS: AMLODIPINE 10 MG TABLET PO SCH (08:33)
[2017-05-23] MEDS: CYCLOBENZAPRINE 10 MG TABLET PO SCH (08:33)
[2017-05-23] MEDS: ASPIRIN *EC* 81 MG TABLET PO SCH (08:33)
[2017-05-23] MEDS: MULTI-VITAMIN PLAIN TABLET PO SCH (08:33)
[2017-05-23 08:36] VITALS: BP 145/75; PULSE 83; RESP 18; TEMP 98.2; O2SAT 93
--- NOTE | 2017-05-23 10:26 | IRU Progress Note ---
- Subjective/Serverity of Illness Mr. Amato states that he is feeling much stronger. He has never used any of those before states that they are of benefit for him. He denies any chest pain or shortness of breath. The back pain has improved. He is to states that he is stable to go home. We will arrange home health physical therapy and occupational therapy evaluation for the transition. It is noted patient is homebound. It is a taxing effort for him to get out of the house. He does use a walker. Exam Vital Signs: Temperature 98.2 F 05/23/17 08:00 Pulse Rate 83 05/23/17 08:00 Respiratory Rate 18 05/23/17 08:00 Blood Pressure 145/75 H 05/23/17 08:00 Pulse Oximetry 93 05/23/17 08:00 Oxygen Delivery Method Room Air Height: 1.78 m Weight: 127.8 kg Body Mass Index: 44.1 - Constitutional Present: no acute distress - Routine HEENT Exam Head: Present: normocephalic Eye: Present: EOMI ENT: Present: mucous membranes moist - Routine Neck Exam Present: supple - Routine Respiratory Exam Absent: dyspnea - Routine Extremities Exam Present: no edema - Routine Skin Exam Present: intact. Absent: erythema - Routine Neurological Exam Present: alert, oriented X3, CN II-XII intact He does have bilateral foot drop. He is improving with a walker. He appears to be safe. Sepsis Assessment - Evaluation Sepsis screening result: No Definite Risk IRU A/P (1) Lumbar paraspinal muscle spasm Current visit: No Status: Resolved (2) Myopathy Current visit: Yes Status: Acute History of is substantially improved. He is able to ambulate with a walker. He is safe to be discharged to home. (3) Morbid obesity Current visit: Yes Status: Acute (4) Acute kidney injury Current visit: No Status: Acute His creatinine will be followed up as an outpatient. It has improved. (5) Benign essential hypertension Current visit: Yes Status: Chronic (6) Foot drop, bilateral Current visit: Yes Status: Chronic Prescription for bilateral AFOs has been provided to the patient. We encouraged him to use these for safety. DVT Prophylaxis: SCD's Resuscitation Status: Full Code - Course Hospital Course: Marito Lee MD: 05/19/17 11:47 Improving with regard to transfers and ambulation. Walking with walker Low back pain continues to be one barrier to progress Muscle weakness continues to be an issue likely secondary to disuse. His creatinine has improved from 1.9 down to 1.6. - Interventions to Obtain Goals PT Treatment Plan: Balance/Proprioception, Functional Activities, Gait Training , Patient/Family Education, Therapeutic Exercise OT Treatment Plan: ADL (Basic Care), Balance Training, IADL, Pt./Family Education, Ther. Exercise for ADL
--- NOTE | 2017-05-23 10:27 | Discharge Instructions ---
Discharge Plan - Med Rec/Dispo Referrals/Follow Up: SUNITA MEANS [Family Provider] - (Dr. Kamaljit Means on 06/03/17 at 1:00 pm for Hosp. follow-up. Please have a BMP lab at that time. [address] [address]) Additional Instructions: Please have a BMP lab at [facility] with Dr Gonzalez. Prescriptions: New Acetaminophen [Tylenol] 325 - 650 mg PO Q4H PRN tablet PRN Reason: Fever /Headache /Pain Losartan [Cozaar] 50 mg PO DAILY tablet Saliva Substitute Mouthwash [Biotene Dry Mouth Oral Rinse] 15 ml MM DAILY PRN bottle PRN Reason: Dry Mouth Bisacodyl Supp [Dulcolax] 10 mg RECTALLY DAILY PRN supp PRN Reason: Constipation PEG 3350 17gm PACKET [Miralax] 17 gm PO DAILY PRN packet PRN Reason: Additional dose as needed Continue Aspirin [[place] Aspirin] 81 mg PO DAILY Multi-Vitamin Plain [Theragran] 1 tab PO DAILY Senna + Docusate [Senna Plus Tablet] 2 tab PO BID tablet Discontinued Amlodipine [Norvasc] 5 mg PO DAILY tablet Bumetanide Tab [Bumex] 1 mg PO DAILY #20 tablet No Action Acetaminophen [Tylenol] 325 - 650 mg PO Q4H PRN tablet PRN Reason: Fever /Headache /Pain Cyclobenzaprine [Flexeril] 10 mg PO TID tablet Hydrocodone/APAP 7.5/325 [[place] 7.5/325] 1 tab PO Q4H PRN tablet PRN Reason: Pain PEG 3350 17gm PACKET [Miralax] 17 gm PO DAILY packet Bisacodyl Supp [Dulcolax] 10 mg RECTALLY DAILY PRN supp PRN Reason: Constipation Milk of Magnesia [Mom] 30 ml PO DAILY PRN udc PRN Reason: Constipation - Disposition Discharged Home, Self-Care
--- NOTE | 2017-05-23 10:37 | Discharge Summary ---
Discharge Information Date of admission: 05/12/17 14:35 Anticipated date of discharge: 05/23/17 Attending Physician: Marito Lee MD Primary care physician: SUNITA MEANS Consults: 05/12/17 14:48 Physician Consult [CONS] Routine Consulting Provider: Ted Elam Reason For Exam: Medical Management Ordering Provider has Notified Fire And Safety Helper: Kirti 05/12/17 16:38 IRU Screening [Inpatient Rehab Screening] [CONS] Routine 05/13/17 13:21 W[facility] Consult [CONS] Routine Reason for consultation: area on buttocks - Discharge Diagnosis (1) Lumbar paraspinal muscle spasm Status: Resolved (2) Myopathy Status: Acute (3) Morbid obesity Status: Acute (4) Acute kidney injury Status: Acute (5) Benign essential hypertension Status: Chronic (6) Foot drop, bilateral Status: Chronic - Laboratory Labs: 05/17/17 11:14 05/21/17 04:22 History of Present Illness HPI: 05/23/17 10:33 Mr. Amato has a remote history of cervical spine injury some 40 years ago. At this time he was admitted after having fallen on more than one occasion. Complaint of severe back pain. Imaging failed to reveal any fractures. He was on the floor for what he states to be about 20 minutes. He was evaluated in the emergency department. He was found to have elevated CK and acute renal failure along with a UTI. After stabilization, he was felt to be a good candidate for acute rehabilitation and was admitted to the IRU. Hospital Course This is a general summary of the patient's hospital course. For more details refer to the complete medical record. Patient was initially admitted through the emergency department to the acute care floor. He was noted to have rhabdomyolysis with markedly elevated CK and acute kidney injury. He was noted to be significantly weak and was felt to be suffering from a myopathy. For this reason, an intensive, individualized approach at physical therapy and occupational therapy nursing and medical management was recommended and he was transferred to the IRU. It was noted that he had bilateral foot drop. He has had this apparently over since his cervical spine injury. AFOs were applied. All the patient does not particularly like some, he does state that they are beneficial for his safety. During the hospitalization on the IRU he was monitored from a medical standpoint by the hospitalists as well as the medical researcher of the rehabilitation unit. His creatinine did improve. His blood pressures were a bit elevated. He was initially placed on some Bumex but he did not like this because of some chronic urinary urgency apparently related to the previous cervical spine injury. Bumex was subsequently discontinued. He is now on losartan and his blood pressures appear to be adequately controlled. He required a multidisciplinary approach because of his acute kidney injury, rhabdomyolysis, myopathy and previous cervical spine injury. He improved on this regimen. He was felt to be stable for discharge back to his home. Home health will be consulted for PT and OT evaluations. In addition we are recommending a follow-up BMP be obtained by his personal physician as an outpatient. At the time of dismissal he is improved. However it is a taxing effort for him to leave home and he does use a walker. For this reason he is considered to be homebound. Hospital course: 05/13/17 Agree with admission to inpatient rehabilitation unit for ongoing strenghtening and improved function given weakness with recent falls. Renal function does continue to improve, however, is not back at baseline. Supervisor Phosphatic Fertilizer today is 2.5 (Baseline appears to be 1.0-1.5). Will continue to hold Cozaar at this time as this can be nephrotoxic Blood pressures are elevated. Will increase Norvasc to 10 mg daily for better control Have asked nursing staff to bladder retraining with Walsh catheter and will plan to discontinue Walsh tomorrow morning. Potassium today is slightly decreased to 3.5. will give a one time order of 40 MEQ today. Will recheck BMP and CK (was 13,067 on 05/12) tomorrow morning. Encourage continued work with PT and OT for strengthening under the care of Dr Lee At time of discharge, patient's medical care will return to his primary care provider, Dr. Means in [place] 05/15/17 14:51 Medically, patient is doing well. His creatinine has decreased to 2.2. We'll continue to hold Cozaar. Hold Bumex. Recheck BMP in am. HTN: BP has been elevated with diastolic >100 mm Hg at times - He's on max dose of Norvasc; Bumex 1 mg daily. D/W Dr. Elam - with DEONDRE, observe for now - may initiate another agent in the future. Rhabdo: CK continues to trend down. He has been able to void since the Walsh catheter was discontinued. DC plans: discussed with ZOE Cottrell. 05/19/17 Overall, Shane is doing well with therapy. Blood pressure has been borderline high at times. His Cozaar continues to be on hold given his elevated renal function. Will resume home Bumex 1 mg daily as this will help control blood pressure Will recheck tomorrow morning, hopeful to resume Cozaar. Will also recheck CPK and it has continued to trend down. Continue to work with PT and OT for ongoing strengthening 05/20/17 12:26 Shane is seen in the dining room this morning and appears in good spirits. He continues to question why he needs to take the Bumex as he feels like his edema has resolved. He states he does not like taking the Bumex because it causes frequent urination and he has difficulty with incontinence and frequency anyway. He also feels that the bumex does not help with his blood pressure and asks if his kidney function would support him resuming his Losartan. He is currently on Norvasc for blood pressure at this time since it does not affect kidney function. BMP results from today discussed including his SCr which continues to trend down at 1.5. Dr. De La Garza discussed optimization of timing of Bumex by taking it at noon time with Shane yesterday, but he would rather it just be discontinued. He denies having any shortness of breath. He denies any current pain. He is eating and drinking well. On exam he is alert and oriented 3 and in no acute distress. Chest is clear to auscultation. Cardiac vascular reveals a regular rate and rhythm. Abdomen is soft and nontender. Extremities reveal +1 edema in the right lower extremity and 2+ edema in the left lower extremity. Patient states that the left leg is chronically more swollen than the right for at least the past couple of years. As he continues to make slow gains, will continue with plan of care. Continue to encourage therapies per Dr. Bridges. Labs today continue to show improvement with SCr trending down at 1.5 and CPK at 249. Will recheck BMP in AM to continue to monitor blood counts and electrolytes. Continue to hold losartan for now and continue Norvasc for blood pressure. Monitor blood pressure closely. No need to continue to recheck CK as it continues to trend down. Continue to monitor closely for fluid overload with daily weights. Bumex once daily at noon. Patient would like Bumex discontinued as soon as possible but is willing to keep taking it if needed. Time spent with patient: less than 15 minutes Discharge Plan - Med Rec/Dispo Referrals/Follow Up: SUNITA MEANS [Family Provider] - (Dr. Kamaljit Means on 06/03/17 at 1:00 pm for Hosp. follow-up. Please have a BMP lab at that time. [address] [address]) Additional Instructions: Please have a BMP lab at [facility] with Dr Gonzalez. Prescriptions: New Acetaminophen [Tylenol] 325 - 650 mg PO Q4H PRN tablet PRN Reason: Fever /Headache /Pain Losartan [Cozaar] 50 mg PO DAILY tablet Saliva Substitute Mouthwash [Biotene Dry Mouth Oral Rinse] 15 ml MM DAILY PRN bottle PRN Reason: Dry Mouth Bisacodyl Supp [Dulcolax] 10 mg RECTALLY DAILY PRN supp PRN Reason: Constipation PEG 3350 17gm PACKET [Miralax] 17 gm PO DAILY PRN packet PRN Reason: Additional dose as needed Continue Aspirin [[place] Aspirin] 81 mg PO DAILY Multi-Vitamin Plain [Theragran] 1 tab PO DAILY Senna + Docusate [Senna Plus Tablet] 2 tab PO BID tablet Discontinued Amlodipine [Norvasc] 5 mg PO DAILY tablet Bumetanide Tab [Bumex] 1 mg PO DAILY #20 tablet No Action Acetaminophen [Tylenol] 325 - 650 mg PO Q4H PRN tablet PRN Reason: Fever /Headache /Pain Cyclobenzaprine [Flexeril] 10 mg PO TID tablet Hydrocodone/APAP 7.5/325 [[place] 7.5/325] 1 tab PO Q4H PRN tablet PRN Reason: Pain PEG 3350 17gm PACKET [Miralax] 17 gm PO DAILY packet Bisacodyl Supp [Dulcolax] 10 mg RECTALLY DAILY PRN supp PRN Reason: Constipation Milk of Magnesia [Mom] 30 ml PO DAILY PRN udc PRN Reason: Constipation - Disposition 01 Discharged Home, Self-Care
--- NOTE | 2017-05-23 18:39 | Progress Note ---
Subjective: Mr. Amato reports continued pain in his shoulder but it is improved from admission on the acute service. Overall he feels he is stronger than when he admitted to rehabilitation but reports he has 40 years of neck trouble and weakness and that it isn't completely gone. He denied dyspnea or chest pain and is anxious to go home. Objective Vital signs: Temperature 98.2 F 05/23/17 08:00 Pulse Rate 83 05/23/17 08:00 Respiratory Rate 18 05/23/17 08:00 Blood Pressure 145/75 H 05/23/17 08:00 Pulse Oximetry 93 05/23/17 08:00 Oxygen Delivery Method Room Air The patient is alert and in no distress. Speech is fluent. Respirations nonlabored with good airflow, breath sounds clear Regular rhythm Abdomen is obese but soft and nontender, bowel sounds are present No lower extremity edema. Body Mass Index: 44.1 Results - Labs CBC & Chem 7: 05/17/17 11:14 05/21/17 04:22 Labs: CPK 249 several days ago-remarkably improved from acute stay Assessment and Plan (1) Rhabdomyolysis Status: Resolved (2) Hypokalemia Status: Resolved (3) Myopathy Status: Chronic (4) Benign essential hypertension Status: Chronic (5) Cervical myelopathy Problem details: C4-5 fracture; C3-6 fusion 40 years ago Status: Chronic Assessment and Plan: Shane is doing well and stable for discharge. Blood pressures have been borderline high and his referred back to his primary care physician for reassessment. Diuretics discontinued. Underlying cervical myelopathy associated with remote C4-5 fracture and cervical fusion. Abdomen mild lysis with acute kidney injury have resolved but mild chronic kidney disease persists. Sepsis Assessment - Evaluation Sepsis screening result: No Definite Risk Hospital Course Summary Disclaimer: The visit summary below is not to be considered part of the above Progress Note. Hospital Course: 05/13/17 Agree with admission to inpatient rehabilitation unit for ongoing strenghtening and improved function given weakness with recent falls. Renal function does continue to improve, however, is not back at baseline. Commercial Insulator today is 2.5 (Baseline appears to be 1.0-1.5). Will continue to hold Cozaar at this time as this can be nephrotoxic Blood pressures are elevated. Will increase Norvasc to 10 mg daily for better control Have asked nursing staff to bladder retraining with Walsh catheter and will plan to discontinue Walsh tomorrow morning. Potassium today is slightly decreased to 3.5. will give a one time order of 40 MEQ today. Will recheck BMP and CK (was 13,067 on 05/12) tomorrow morning. Encourage continued work with PT and OT for strengthening under the care of Dr Lee At time of discharge, patient's medical care will return to his primary care provider, Dr. Brown in [place] 05/15/17 14:51 Medically, patient is doing well. His creatinine has decreased to 2.2. We'll continue to hold Cozaar. Hold Bumex. Recheck BMP in am. HTN: BP has been elevated with diastolic >100 mm Hg at times - He's on max dose of Norvasc; Bumex 1 mg daily. D/W Dr. Elam - with DEONDRE, observe for now - may initiate another agent in the future. Rhabdo: CK continues to trend down. He has been able to void since the Walsh catheter was discontinued. DC plans: discussed with ZOE Cottrell. 05/19/17 Overall, Shane is doing well with therapy. Blood pressure has been borderline high at times. His Cozaar continues to be on hold given his elevated renal function. Will resume home Bumex 1 mg daily as this will help control blood pressure Will recheck tomorrow morning, hopeful to resume Cozaar. Will also recheck CPK and it has continued to trend down. Continue to work with PT and OT for ongoing strengthening 05/20/17 12:26 Shane is seen in the dining room this morning and appears in good spirits. He continues to question why he needs to take the Bumex as he feels like his edema has resolved. He states he does not like taking the Bumex because it causes frequent urination and he has difficulty with incontinence and frequency anyway. He also feels that the bumex does not help with his blood pressure and asks if his kidney function would support him resuming his Losartan. He is currently on Norvasc for blood pressure at this time since it does not affect kidney function. BMP results from today discussed including his SCr which continues to trend down at 1.5. Dr. De La Garza discussed optimization of timing of Bumex by taking it at noon time with Shane yesterday, but he would rather it just be discontinued. He denies having any shortness of breath. He denies any current pain. He is eating and drinking well. On exam he is alert and oriented 3 and in no acute distress. Chest is clear to auscultation. Cardiac vascular reveals a regular rate and rhythm. Abdomen is soft and nontender. Extremities reveal +1 edema in the right lower extremity and 2+ edema in the left lower extremity. Patient states that the left leg is chronically more swollen than the right for at least the past couple of years. As he continues to make slow gains, will continue with plan of care. Continue to encourage therapies per Dr. Bridges. Labs today continue to show improvement with SCr trending down at 1.5 and CPK at 249. Will recheck BMP in AM to continue to monitor blood counts and electrolytes. Continue to hold losartan for now and continue Norvasc for blood pressure. Monitor blood pressure closely. No need to continue to recheck CK as it continues to trend down. Continue to monitor closely for fluid overload with daily weights. Bumex once daily at noon. Patient would like Bumex discontinued as soon as possible but is willing to keep taking it if needed.
== END 2017-05-23 12:15 | disposition home health service (06) | DRG 92 ==
PROVIDERS: ADMIT Family Medicine; ATTEND Family Medicine